=== PATIENT | female | born 1935 | race Caucasian/White ===

== ENCOUNTER 2017-06-05 10:59 | Inpatient (IN) | payer MEDICARE, BC ==
--- NOTE | 2017-06-05 11:56 | EDM.PDOC ---
ED HPI GENERAL MEDICAL PROBLEM - General Chief Complaint: Syncope Stated Complaint: STROKE LIKE SYMPTONS Time Seen by Provider: 06/05/17 11:25 Source of Information: Reports: Patient History Limitations: Reports: No Limitations - History of Present Illness INITIAL COMMENTS - FREE TEXT/NARRATIVE: c/o syncope in [facility] awoke several times during night, up at 5 AM, took her meds including a donut with one, no other bfast, grandson from [place] drove her to [facility], she had pain in her mid back, no CP, sitting in pew, took NTG x 2, stood up for the gospel, felt dizzy and lightheaded, sat back down, was unresponsive when family spoke to her, says she always gets a BROWN after the NTG, however both BROWN and back pain gone now had cardiac stents x 2 at [facility] 12/01, says she had a small NM, 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, no other c/o now, here with grandson, EMS evaluated at scene, then grandson who is 15 yo drove her here in her car pt poor historian, talks at length regarding tangential issues and has to be redirected repeatedly to answer the question asked does drive, appears dehydrated, O x 3 - Related Data Allergies Allergy/AdvReac Type Severity Reaction Status Date / Time No Known Allergies Allergy Verified 06/05/17 12:49 Home Meds: Home Meds Acetaminophen 650 mg PO Q4HR PRN 06/05/17 [History] Anastrozole [Arimidex] 1 mg PO BEDTIME 06/05/17 [History] Ascorbic Acid [C-1000] 2,000 mg PO DAILY 06/05/17 [History] Aspirin [Lo-Dose Aspirin EC] 81 mg PO BEDTIME 06/05/17 [History] Carvedilol [Carvedilol] 12.5 mg PO BID 06/05/17 [History] Clopidogrel Bisulfate [Clopidogrel] 75 mg PO DAILY 06/05/17 [History] Fenofibrate [Fenofibrate] 54 mg PO DAILY 06/05/17 [History] Ferrous Sulfate 325 mg PO DAILY 06/05/17 [History] Furosemide [Lasix] 20 mg PO DAILY PRN 06/05/17 [History] Gluc/Adarsh-Msm#1/C/Mina/Keaton/Bor [Osteo Bi-Flex Caplet] 2 tab PO BID 06/05/17 [ History] Levothyroxine 75 mcg PO DAILY 06/05/17 [History] Lisinopril [Lisinopril] 40 mg PO BEDTIME 06/05/17 [History] Multivitamin with Minerals [Multiple Vitamin] 1 tab PO DAILY 06/05/17 [History] Nitroglycerin 1 tab SL ASDIRECTED PRN 06/05/17 [History] [place]-3/DHA/Epa/Fish Oil [[place]-3 Fish Oil 1,000 MG Sfgl] 2,000 mg PO DAILY [History] Pantoprazole [ProTONIX] 40 mg PO DAILY 06/05/17 [History] Spironolactone [Aldactone] 12.5 mg PO DAILY 06/05/17 [History] atorvaSTATin [Lipitor] 40 mg PO BEDTIME 06/05/17 [History] atorvaSTATin [Lipitor] 40 mg PO BEDTIME 06/05/17 [History] ED ROS GENERAL - Review of Systems Review Of Systems: See Below Constitutional: Reports: No Symptoms HEENT: Reports: No Symptoms Respiratory: Reports: No Symptoms. Denies: Shortness of Breath, Cough Cardiovascular: Reports: No Symptoms. Denies: Chest Pain Endocrine: Reports: No Symptoms GI/Abdominal: Reports: No Symptoms : Reports: No Symptoms Musculoskeletal: Reports: Back Pain Skin: Reports: No Symptoms Neurological: Reports: Syncope Psychiatric: Reports: No Symptoms Hematologic/Lymphatic: Reports: No Symptoms Immunologic: Reports: No Symptoms - Physical Exam Exam: See Below Exam Limited By: No Limitations General Appearance: Alert, WD/WN, No Apparent Distress, Anxious Eye Exam: Bilateral Eye: Normal Inspection, PERRL Ears: Normal External Exam Nose: Normal Inspection, Normal Mucosa, No Blood Throat/Mouth: Normal Inspection, Normal Lips, Normal Teeth, Normal Gums, Normal Oropharynx, Normal Voice, No Airway Compromise Head Exam: Atraumatic, Normocephalic Neck: Normal Inspection, Supple, Non-Tender, Full Range of Motion Respiratory/Chest: No Respiratory Distress, Lungs Clear, Normal Breath Sounds, No Accessory Muscle Use, Chest Non-Tender Cardiovascular: Regular Rate, Rhythm, No Gallop, No JVD, No Rub, Other (2/6 ALYCIA at LSB, no tachy, quiet precordium, no s3/s4) GI/Abdominal: Normal Bowel Sounds, Soft, Non-Tender, No Organomegaly, No Distention, No Mass Neuro Exam (Abbreviated): Alert, Oriented, CN II-XII Intact, Normal Cognition, No Motor/Sensory Deficits Back Exam: Normal Inspection, Full Range of Motion, NT Extremities: Normal Inspection, Normal Range of Motion, Non-Tender, Other ( trace pretib edema b/l, dec'd turgor UE without tenting) Psychiatric: Normal Affect, Normal Mood, Anxious Skin Exam: Warm, Dry, Intact, Normal Color, No Rash Course - Vital Signs Last Recorded V/S: Last Vital Signs Temp 36.6 C 06/05/17 11:00 Pulse 74 06/05/17 11:00 Resp 16 06/05/17 11:00 BP 132/62 06/05/17 11:00 Pulse Ox 95 06/05/17 11:00 - Orders/Labs/Meds Orders: Active Orders 24 hr Category Date Time Status Admission Diagnosis [ADT] Stat ADT 06/05/17 16:15 Ordered EKG Documentation Completion [RC] ASDIRECTED Care 06/05/17 11:51 Active Ang Chest [CT] Stat Exams 06/05/17 13:53 Taken Chest 2V [CR] Stat Exams 06/05/17 11:48 Taken CULTURE URINE [RM] Stat Lab 06/05/17 15:55 Ordered Sodium Chloride 0.9% [Normal Saline] 1,000 ml Med 06/05/17 12:00 Active IV ASDIRECTED Sodium Chloride 0.9% [Normal Saline] 1,000 ml Med 06/05/17 14:00 Active IV ASDIRECTED EKG 12 Lead [EK] Routine Ther 06/05/17 11:51 Ordered Medication Orders Sodium Chloride (Normal Saline) 1,000 mls @ 999 mls/hr IV ASDIRECTED [place] Sodium Chloride (Normal Saline) 1,000 mls @ 999 mls/hr IV ASDIRECTED PAX[place] Labs: Laboratory Tests 06/05/17 06/05/17 06/05/17 Range/Units 12:00 12:00 12:00 WBC 8.6 (4.5-12.0) X10-3/uL RBC 3.94 (3.23-5.20) x10(6)uL Hgb 10.4 L (11.5-15.5) g/dL Hct 31.2 (30.0-51.3) % MCV 79.3 L (80-96) fL MCH 26.3 L (27.7-33.6) pg MCHC 33.2 (32.2-35.4) g/dL RDW 13.4 (11.5-15.5) % Plt Count 213 (125-369) X10(3)uL MPV 8.0 (7.4-10.4) fL Neut % (Auto) 84.9 H (46-82) % Lymph % (Auto) 8.6 L (13-37) % [place] % (Auto) 5.0 (4-12) % Eos % (Auto) 1 (1.0-5.0) % Baso % (Auto) 0 (0-2) % Neut # (Auto) 7.4 (1.6-8.3) # Lymph # (Auto) 0.7 (0.6-5.0) # [place] # (Auto) 0.4 (0.0-1.3) # Eos # (Auto) 0.1 (0.0-0.8) # Baso # (Auto) 0.0 (0.0-0.2) # D-Dimer, Quantitative 724 H (100-400) ng/mL Sodium 138 (135-145) mmol/L Potassium 4.4 (3.5-5.3) mmol/L Chloride 108 (100-110) mmol/L Carbon Dioxide 22 L (23-29) mmol/L BUN 34 H D (8-23) mg/dL Creatinine 1.3 (0.6-1.3) mg/dL Est Cr Clr Drug Dosing TNP Estimated GFR (MDRD) 39 L (>60) BUN/Creatinine Ratio 26.2 H (9-20) Glucose 120 H (80-116) mg/dL Calcium 9.5 (8.6-10.2) mg/dL Magnesium (1.8-2.5) mg/dL Total Bilirubin 0.5 (0.1-1.3) mg/dL AST 22 (5-27) IU/L ALT 13 L D (14-26) IU/L Alkaline Phosphatase 45 L (56-112) IU/L Troponin I (0.02-0.06) NG/ML C-Reactive Protein < 0.5 (0.0-1.0) mg/dL NT-Pro-B Natriuret Pep (5-450) pg/mL Total Protein 7.3 (6.0-8.0) g/dL Albumin 4.2 (3.2-4.6) g/dL Globulin 3.1 g/dL Albumin/Globulin Ratio 1.4 Urine Color (YELLOW) Urine Appearance (CLEAR) Urine pH (5.0-6.5) Ur Specific [place] (1.010-1.025) Urine Protein (NEGATIVE) mg/dL Urine Glucose (UA) (NEGATIVE) mg/dL Urine Ketones (NEGATIVE) mg/dL Urine Occult Blood (NEGATIVE) Urine Nitrite (NEGATIVE) Urine Bilirubin (NEGATIVE) Urine Urobilinogen (NEGATIVE) mg/dL Ur Leukocyte Esterase (NEGATIVE) Urine RBC (0) Urine WBC (0) Ur Squamous Epith Cells (NS,R,O) Urine Bacteria (NS) 06/05/17 06/05/17 06/05/17 Range/Units 12:00 12:00 14:05 WBC (4.5-12.0) X10-3/uL RBC (3.23-5.20) x10(6)uL Hgb (11.5-15.5) g/dL Hct (30.0-51.3) % MCV (80-96) fL MCH (27.7-33.6) pg MCHC (32.2-35.4) g/dL RDW (11.5-15.5) % Plt Count (125-369) X10(3)uL MPV (7.4-10.4) fL Neut % (Auto) (46-82) % Lymph % (Auto) (13-37) % [place] % (Auto) (4-12) % Eos % (Auto) (1.0-5.0) % Baso % (Auto) (0-2) % Neut # (Auto) (1.6-8.3) # Lymph # (Auto) (0.6-5.0) # [place] # (Auto) (0.0-1.3) # Eos # (Auto) (0.0-0.8) # Baso # (Auto) (0.0-0.2) # D-Dimer, Quantitative (100-400) ng/mL Sodium (135-145) mmol/L Potassium (3.5-5.3) mmol/L Chloride (100-110) mmol/L Carbon Dioxide (23-29) mmol/L BUN (8-23) mg/dL Creatinine (0.6-1.3) mg/dL Est Cr Clr Drug Dosing Estimated GFR (MDRD) (>60) BUN/Creatinine Ratio (9-20) Glucose (80-116) mg/dL Calcium (8.6-10.2) mg/dL Magnesium 2.1 (1.8-2.5) mg/dL Total Bilirubin (0.1-1.3) mg/dL AST (5-27) IU/L ALT (14-26) IU/L Alkaline Phosphatase (56-112) IU/L Troponin I < 0.01 L (0.02-0.06) NG/ML C-Reactive Protein (0.0-1.0) mg/dL NT-Pro-B Natriuret Pep 212 (5-450) pg/mL Total Protein (6.0-8.0) g/dL Albumin (3.2-4.6) g/dL Globulin g/dL Albumin/Globulin Ratio Urine Color Yellow (YELLOW) Urine Appearance Clear (CLEAR) Urine pH 5.0 (5.0-6.5) Ur Specific [place] 1.020 (1.010-1.025) Urine Protein Negative (NEGATIVE) mg/dL Urine Glucose (UA) Normal (NEGATIVE) mg/dL Urine Ketones Negative (NEGATIVE) mg/dL Urine Occult Blood Negative (NEGATIVE) Urine Nitrite Positive H (NEGATIVE) Urine Bilirubin Negative (NEGATIVE) Urine Urobilinogen Normal (NEGATIVE) mg/dL Ur Leukocyte Esterase Moderate H (NEGATIVE) Urine RBC 0-5 (0) Urine WBC 0-5 (0) Ur Squamous Epith Cells Moderate H (NS,R,O) Urine Bacteria Many H (NS) Meds: Medications Generic Name Dose Route Start Last Admin Trade Name Freq PRN Reason Stop Dose Admin Sodium Chloride 1,000 mls @ 999 mls/hr 06/05/17 12:00 Normal Saline IV ASDIRECTED PAXTON Sodium Chloride 1,000 mls @ 999 mls/hr 06/05/17 14:00 Normal Saline IV ASDIRECTED PAXTON Discontinued Medications Generic Name Dose Route Start Last Admin Trade Name Freq PRN Reason Stop Dose Admin Iopamidol 75 ml 06/05/17 14:21 06/05/17 14:33 Isovue-370 (76%) IV 06/05/17 14:22 70 ml ONETIME ONE Administration - Re-Assessments/Exams Free Text/Narrative Re-Assessment/Exam: 06/05/17 13:54 d-dimer inc'd, back pain gone, inc'd BUn c/w dehydration, will give 2nd liter NS and do chest CTA, pt and dtr agree 06/05/17 16:26 chest CTA neg, 2nd dtr here, pt admitted 05/09 for 2d in [place] with c/o sob, Brillanta was stopped and Plavix begun, sob now gone, however pt did have back pain with cardiac issues in past altho it is unclear whether back pain was ever cardiac in origin, does have moderate anterior spurring of t-spine on CxR. Chest CTA is neg for PE. However, with syncope and dehydration (pt says "my mouth is always dry") and acute renal insufficiency, pt will need further adjustment of meds. Pt did need higher dose of meds in hospital for inc'd BP, altho will need lower dose now. Departure - Departure Time of Disposition: 16:29 Disposition: Admitted As Inpatient 67 Condition: Good Clinical Impression: Syncope, Dehydration, [id number] renal failure, Widened pulse pressure - Discharge Information Referrals: Trevon Etienne MD [Primary Care Provider] - Forms: ED Department Discharge - My Orders Last 24 Hours: My Active Orders 06/05/17 11:48 Chest 2V [CR] Stat 06/05/17 11:51 EKG Documentation Completion [RC] ASDIRECTED EKG 12 Lead [EK] Routine 06/05/17 12:00 Sodium Chloride 0.9% [Normal Saline] 1,000 ml IV ASDIRECTED 06/05/17 13:53 Ang Chest [CT] Stat 06/05/17 14:00 Sodium Chloride 0.9% [Normal Saline] 1,000 ml IV ASDIRECTED 06/05/17 15:55 CULTURE URINE [RM] Stat 06/05/17 16:15 Admission Diagnosis [ADT] Stat - Assessment/Plan Last 24 Hours: My Active Orders 06/05/17 11:48 Chest 2V [CR] Stat 06/05/17 11:51 EKG Documentation Completion [RC] ASDIRECTED EKG 12 Lead [EK] Routine 06/05/17 12:00 Sodium Chloride 0.9% [Normal Saline] 1,000 ml IV ASDIRECTED 06/05/17 13:53 Ang Chest [CT] Stat 06/05/17 14:00 Sodium Chloride 0.9% [Normal Saline] 1,000 ml IV ASDIRECTED 06/05/17 15:55 CULTURE URINE [RM] Stat 06/05/17 16:15 Admission Diagnosis [ADT] Stat
[2017-06-05] MEDS ORDERED: Sodium Chloride 0.9% 1,000 ML IV SCH ×3 (12:00→18:15)
[2017-06-05] MEDS ORDERED: Iopamidol 755 Mg/ML 75 ML Bottle IV ONE (14:21)
[2017-06-05] MEDS ORDERED: Acetaminophen 325 MG Tab PO PRN (21:48)
[2017-06-05] MEDS ORDERED: Furosemide 20 MG Tab PO PRN (21:48)
[2017-06-05] MEDS ORDERED: Nitroglycerin 0.4 MG Tab.SL SL PRN (21:48)
[2017-06-05] MEDS ORDERED: Aspirin 81 MG Tab.EC PO SCH (22:26)
[2017-06-05] MEDS ORDERED: atorvaSTATin 40 MG Tab PO SCH (22:26)
[2017-06-05] MEDS ORDERED: Anastrozole 1 MG Tab PO SCH (22:27)
[2017-06-05] MEDS: Carvedilol 12.5 MG Tab PO SCH (23:31)
[2017-06-06] MEDS ORDERED: Levothyroxine 75 MCG Tab PO SCH (07:00)
[2017-06-06] MEDS ORDERED: Pantoprazole 40 MG Tab.CR PO SCH (07:30)
--- NOTE | 2017-06-06 08:03 | PCM.HP ---
H&P History of Present Illness - General Date of Service: 06/06/17 Source of Information: Patient, Family History Limitations: Reports: No Limitations - History of Present Illness Initial Comments - Free Text/Narative: 82-year-old female that was brought in to the ER after she fainted in [place]. Patient complained of back pain earlier in the upper back, and since this previously has been associated with the coronary disease, she took nitroglycerin twice. Was standing in [place] she felt warm dizzy and passed out. There was no seizure tongue biting headache chest pain or shortness of breath. Upon admission she was found to have a low blood pressure and she is admitted because of possible dehydration. Initial labs include troponin EKG were unremarkable and a CT of the chest to rule out PE was also normal. The significant history of coronary disease with recent stents and has cardiology appointment for follow-up this week. - Related Data Allergies/Adverse Reactions: Allergies Allergy/AdvReac Type Severity Reaction Status Date / Time ciprofloxacin [From Cipro] AdvReac Itching Verified 06/05/17 19:15 nitrofurantoin AdvReac Nausea and Verified 06/05/17 18:52 [From Macrobid] Vomiting Sulfa (Sulfonamide AdvReac Itching Verified 06/05/17 19:15 Antibiotics) Home Medications: Home Meds Acetaminophen 650 mg PO Q4HR PRN 06/05/17 [History] Anastrozole [Arimidex] 1 mg PO BEDTIME 06/05/17 [History] Ascorbic Acid [C-1000] 2,000 mg PO DAILY 06/05/17 [History] Aspirin [Lo-Dose Aspirin EC] 81 mg PO BEDTIME 06/05/17 [History] Carvedilol [Carvedilol] 12.5 mg PO BID 06/05/17 [History] Clopidogrel Bisulfate [Clopidogrel] 75 mg PO DAILY 06/05/17 [History] Fenofibrate [Fenofibrate] 54 mg PO DAILY 06/05/17 [History] Ferrous Sulfate 325 mg PO DAILY 06/05/17 [History] Furosemide [Lasix] 20 mg PO DAILY PRN 06/05/17 [History] Gluc/Adarsh-Msm#1/C/Mina/Keaton/Bor [Osteo Bi-Flex Caplet] 2 tab PO BID 06/05/17 [ History] Levothyroxine 75 mcg PO DAILY 06/05/17 [History] Lisinopril [Lisinopril] 40 mg PO BEDTIME 06/05/17 [History] Multivitamin with Minerals [Multiple Vitamin] 1 tab PO DAILY 06/05/17 [History] Nitroglycerin 0.4 mg SL Q5M PRN 06/05/17 [History] [place]-3/DHA/Epa/Fish Oil [[place]-3 Fish Oil 1,000 MG Sfgl] 2,000 mg PO DAILY [History] Pantoprazole [ProTONIX] 40 mg PO DAILY 06/05/17 [History] Spironolactone [Aldactone] 12.5 mg PO DAILY 06/05/17 [History] atorvaSTATin [Lipitor] 40 mg PO BEDTIME 06/05/17 [History] Past Medical History HEENT History: Reports: Other (See Below) Cardiovascular History: Reports: CAD, High Cholesterol, Hypertension, HI, Stents , Other (See Below) Other Cardiovascular History: slight damage to wall per echo Respiratory History: Reports: Pneumonia, Recurrent Gastrointestinal History: Reports: Other (See Below) Other Gastrointestinal History: some difficulty swallowing with talk of doing EGD in the future Genitourinary History: Reports: UTI, Recurrent Other Genitourinary History: "chronic bladder infection" 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 (See Below) Other OB/BYN History: hysterectomy for hemorrhage Musculoskeletal History: Reports: Arthritis, Fibromyalgia Other Musculoskeletal History: back, knees, neck Endocrine/Metabolic History: Reports: Hypothyroidism Hematologic History: Reports: Anemia Oncologic (Cancer) History: Reports: Other (See Below) 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 - Past Surgical History HEENT Surgical History: Reports: Other (See Below) Other HEENT Surgeries/Procedures: precancerous spots facially Cardiovascular Surgical History: Reports: Percutaneous Transluminal Angioplasty , Other (See Below) Other Cardiovascular Surgeries/Procedures: 12/01 and 05/03 cardiac stents, Respiratory Surgical History: Reports: None GI Surgical History: Reports: Appendectomy, Colonoscopy Female Surgical History: Reports: Other (See Below) Other Female Surgeries/Procedures: right breast lumpectomy, with 4-5 nodes removed with Musculoskeletal Surgical History: Reports: None, Other (See Below) Other Musculoskeletal Surgeries/Procedures:: disc surgery Social & Family History - Tobacco Use Smoking Status *Q: Never Smoker Second Hand Smoke Exposure: No - Caffeine Use Caffeine Use: Reports: None - Recreational Drug Use Recreational Drug Use: No H&P Review of Systems - Review of Systems: Review Of Systems: ROS reveals no pertinent complaints other than HPI. Exam - Exam Exam: See Below - Vital Signs Vital Signs: Last Vital Signs Temp 97.9 F 06/05/17 23:30 Pulse 93 06/06/17 03:00 Resp 20 06/06/17 03:00 BP 142/64 H 06/06/17 03:00 Pulse Ox 99 06/06/17 03:00 Weight: 70.449 kg - Exam General: Alert, Oriented, 4 HEENT: PERRLA, Hearing Intact, Mucosa Moist & [place], Nares Patent, Normal Nasal Septum, Posterior Pharynx Clear, Conjunctiva Clear, EOMI, EACs Clear, TMs Clear Neck: Supple, Trachea Midline, 2 Lungs: Clear to Auscultation, Normal Respiratory Effort Cardiovascular: Regular Rate, Regular Rhythm GI/Abdominal Exam: Normal Bowel Sounds, Soft, Non-Tender, No Organomegaly, No Distention, No Abnormal Bruit, No Mass, Pelvis Stable (Female) Exam: Normal External Exam, Normal Speculum Exam, Normal Bimanual Exam Rectal (Female) Exam: Normal Exam, Normal Rectal Tone Back Exam: Normal Inspection, Full Range of Motion, Muscle Spasm, Paraspinal Tenderness, Vertebral Tenderness Extremities: Normal Inspection, Normal Range of Motion, Non-Tender, No Pedal Edema, Normal Capillary Refill Skin: Warm, Dry, Intact Neurological: Cranial Nerves Intact, Reflexes Equal Bilateral Neuro Extensive - Mental Status: Alert, Oriented x3, Normal Mood/Affect, Normal Cognition Neuro Extensive - Motor, Sensory, Reflexes: CN II-XII Intact, Normal Gait, Normal Reflexes Psychiatric: Alert, Normal Affect, Normal Mood - Patient Data Result Diagrams: 06/05/17 12:00 06/05/17 12:00 Imaging Impressions Last 24 hrs: neg CT chest EKG INTERPRETATION Rhythm: NSR *Q Meaningful Use (ADM) - VTE *Q VTE Criteria *Q: - Stroke *Q Stroke Criteria *Q: - AMI *Q AMI Criteria *Q: - Problem List (1) Syncope SNOMED Code(s): 593812028 ICD Code: R55 - SYNCOPE AND COLLAPSE Status: Acute Current Visit: Yes Qualifiers: Syncope type: unspecified Qualified Code(s): R55 - Syncope and collapse (2) CAD (coronary artery disease) SNOMED Code(s): 83813301 ICD Code: I25.10 - ATHSCL HEART DISEASE OF [place] CORONARY ARTERY W/O ANG PCTRS Status: Acute Current Visit: Yes (3) Myofascial muscle pain SNOMED Code(s): 235358871 ICD Code: M79.1 - MYALGIA Status: Acute Current Visit: Yes (4) ALISSON (generalized anxiety disorder) SNOMED Code(s): 58721747 ICD Code: F41.1 - GENERALIZED ANXIETY DISORDER Status: Acute Current Visit: Yes (5) HLD (hyperlipidemia) SNOMED Code(s): 74125727 ICD Code: E78.5 - HYPERLIPIDEMIA, UNSPECIFIED Status: Acute Current Visit : Yes Problem List Initiated/Reviewed/Updated: Yes Orders Last 24hrs: Active Orders 24 hr Category Date Time Status EKG Documentation Completion [RC] ASDIRECTED Care 06/06/17 07:45 Active Regular Diet [DIET] Diet 06/05/17 Dinner Active BASIC METABOLIC PANEL,BMP [CHEM] Stat Lab 06/06/17 07:45 Ordered CBC WITH AUTO DIFF [HEME] Stat Lab 06/06/17 07:45 Ordered TROPONIN I [CHEM] Stat Lab 06/06/17 07:45 Ordered Acetaminophen [Tylenol] Med 06/05/17 21:48 Active 650 mg PO Q4H PRN Anastrozole [Arimidex] Med 06/05/17 22:27 Active 1 mg PO BEDTIME Ascorbic Acid [Vitamin C] Med 06/06/17 09:00 Active 2,000 mg PO DAILY Aspirin [Halfprin] Med 06/05/17 22:26 Active 81 mg PO BEDTIME Carvedilol [Coreg] Med 06/05/17 22:00 Active 12.5 mg PO BIDMEALS Clopidogrel [Plavix] Med 06/06/17 09:00 Active 75 mg PO DAILY Fenofibrate [Fenofibrate] Med 06/06/17 09:00 Pending 54 mg PO DAILY Ferrous Sulfate Med 06/06/17 09:00 Active 325 mg PO DAILY Fish Oil/[place]-3 Fatty Acids [Fish Oil] Med 06/06/17 09:00 Active 2 gm PO DAILY Furosemide [Lasix] Med 06/05/17 21:48 Active 20 mg PO DAILY PRN Gluc/Adarsh-Msm#1/C/Mina/Ke[place]/Bor [Osteo Bi-Flex Caplet] Med 06/06/17 09:00 Pending 2 tab PO BID Levothyroxine Med 06/06/17 07:00 Active 75 mcg PO DAILY@0700 Lisinopril [Prinivil] Med 06/05/17 22:27 Active 40 mg PO BEDTIME Multivitamins/Minerals [Vitamins and Minerals] Med 06/06/17 09:00 Active 1 tab PO DAILY Nitroglycerin [Nitrostat] Med 06/05/17 21:48 Active 0.4 mg SL ASDIRECTED PRN Pantoprazole [ProTONIX] Med 06/06/17 07:30 Active 40 mg PO ACBREAKFAST Sodium Chloride 0.9% [Normal Saline] 1,000 ml Med 06/05/17 18:15 Active IV ASDIRECTED Spironolactone [Aldactone] Med 06/06/17 09:00 Active 12.5 mg PO DAILY atorvaSTATin [Lipitor] Med 06/05/17 22:26 Active 40 mg PO BEDTIME Resuscitation Status Routine Resus Stat 06/06/17 00:33 Ordered EKG 12 Lead [EK] Routine Ther 06/06/17 07:45 Ordered Medication Orders Acetaminophen (Tylenol) 650 mg PO Q4H PRN PRN Reason: Pain Anastrozole (Arimidex) 1 mg PO BEDTIME [facility] Last Admin: 06/05/17 23:31 Dose: 1 mg Ascorbic Acid (Vitamin C) 2,000 mg PO DAILY [facility] Aspirin (Halfprin) 81 mg PO BEDTIME [facility] Last Admin: 06/05/17 23:31 Dose: 81 mg Atorvastatin Calcium (Lipitor) 40 mg PO BEDTIME [facility] Last Admin: 06/05/17 23:31 Dose: 40 mg Carvedilol (Coreg) 12.5 mg PO BIDMEALS [facility] Last Admin: 06/05/17 23:31 Dose: 12.5 mg Clopidogrel Bisulfate (Plavix) 75 mg PO DAILY [facility] Ferrous Sulfate (Ferrous Sulfate) 325 mg PO DAILY [facility] Fish Oil (Fish Oil) 2 gm PO DAILY [facility] Furosemide (Lasix) 20 mg PO DAILY PRN PRN Reason: Edema Sodium Chloride (Normal Saline) 1,000 mls @ 999 mls/hr IV ASDIRECTED [facility] Last Admin: 06/05/17 12:40 Dose: 999 mls/hr Sodium Chloride (Normal Saline) 1,000 mls @ 999 mls/hr IV ASDIRECTED [facility] Last Admin: 06/05/17 16:48 Dose: 999 mls/hr Sodium Chloride (Normal Saline) 1,000 mls @ 30 mls/hr IV ASDIRECTED [facility] Last Admin: 06/05/17 18:15 Dose: 30 mls/hr Levothyroxine Sodium (Levothyroxine) 75 mcg PO DAILY@0700 [facility] Last Admin: 06/06/17 06:33 Dose: 75 mcg Lisinopril (Prinivil) 40 mg PO BEDTIME [facility] Last Admin: 06/05/17 23:32 Dose: 40 mg Multivitamins/Minerals (Vitamins And Minerals) 1 tab PO DAILY [facility] Nitroglycerin (Nitrostat) 0.4 mg SL ASDIRECTED PRN PRN Reason: Chest Pain Non-Formulary Medication (Fenofibrate [Fenofibrate]) 54 mg PO DAILY [facility] Non-Formulary Medication (Gluc/Adarsh-Msm#1/C/Mina/Keaton/Bor [Osteo Bi-Flex Caplet] ) 2 tab PO BID [facility] Pantoprazole Sodium (Protonix) 40 mg PO ACBREAKFAST [facility] Last Admin: 06/06/17 06:33 Dose: 40 mg Spironolactone (Aldactone) 12.5 mg PO DAILY [facility] Assessment/Plan Comment:: Admit the patient. Repeat troponin EKG this morning. Overnight there was no arrhythmia noted on telemetry ,,and she feels good this morning ,with no chest pain or shortness breath. She continues to complain of upper back pain and on palpation this vertebral and paraspinal muscle tenderness. If the EKG and troponin are negative I will discharge her for further follow-up with cardiology tomorrow
[2017-06-06] MEDS ORDERED: Spironolactone 25 MG Tab PO SCH ×2 (09:00)
[2017-06-06] MEDS ORDERED: FENOFIBRATE 54 MG PO SCH (09:00)
[2017-06-06] MEDS ORDERED: Ferrous Sulfate 325 MG Tab PO SCH (09:00)
[2017-06-06] MEDS ORDERED: Ascorbic Acid 500 MG Tab PO SCH (09:00)
[2017-06-06] MEDS ORDERED: Fish Oil/Omega-3 Fatty Acids 1 Gm Cap PO SCH ×2 (09:00→12:00)
[2017-06-06] MEDS ORDERED: Clopidogrel 75 MG Tab PO SCH (09:00)
[2017-06-06] MEDS ORDERED: Multivitamins, Therapeutic with Minerals Tab PO SCH (09:00)
[2017-06-06] MEDS: Carvedilol 12.5 MG Tab PO SCH (09:36)
[2017-06-06] MEDS ORDERED: Chondroitin/Glucosamine Cap PO SCH (18:00)
[2017-06-06] MEDS ORDERED: Aspirin 81 MG Tab.EC PO SCH (21:00)
[2017-06-06] MEDS ORDERED: Anastrozole 1 MG Tab PO SCH (21:00)
[2017-06-06] MEDS ORDERED: atorvaSTATin 40 MG Tab PO SCH ×2 (21:00)
--- NOTE | 2017-06-06 21:39 | DISCH ---
DISCHARGE DATE: 06/06/2017 REASON FOR ADMISSION: 1. Vasovagal syncope. 2. Mild dehydration. 3. Coronary artery disease, status post stents x2 in 2017. 4. Hypertension. 5. Hyperlipidemia. 6. Generalized anxiety disorder. 7. Myofascial pain, upper back. DISCHARGE DIAGNOSES: 1. Vasovagal syncope. 2. Mild dehydration. 3. Coronary artery disease, status post stents x2 in 2017. 4. Hypertension. 5. Hyperlipidemia. 6. Generalized anxiety disorder. 7. Myofascial pain, upper back. CONSULTATIONS: None. HISTORY AND HOSPITAL COURSE: An 82-year-old female known to have coronary artery disease, who had upper back pain, which previously has presented as an acute coronary syndrome. She took 2 doses of nitroglycerin, felt dizzy and fainted at [facility], was brought in for evaluation. She was found to be mildly dehydrated, but otherwise alert and with widened pulse pressure. She was given IV fluids. EKG, troponin were negative. She was admitted for telemetry and monitoring. She did well overnight. A CT of the chest done in the ER was negative for PE. I discharged her home today on a regular home medications for a followup appointment with Cardiology tomorrow. She will go home on the same dose of her medications. Please note that I spent more than 35 minutes in the discharge of the patient. /[id number] TANNER/FRANCISCO
[2017-06-07] MEDS ORDERED: Levothyroxine 75 MCG Tab PO SCH (06:00)
== END 2017-06-06 12:05 | disposition home or self-care (01) | DRG 312 ==
LOC: FB.ED 10:59 → FB.MS 16:36
PROVIDERS: ADMIT Family Medicine; ATTEND Family Medicine
DX: R55 Syncope and collapse (principal); E86.0 Dehydration; M79.1 Myalgia; F41.1 Generalized anxiety disorder; E78.5 Hyperlipidemia, unspecified; N17.9 Acute kidney failure, unspecified; I25.10 Atherosclerotic heart disease of native coronary artery without angina pectoris; I11.0 Hypertensive heart disease with heart failure; I50.9 Heart failure, unspecified; Z95.5 Presence of coronary angioplasty implant and graft; I25.2 Old myocardial infarction; M19.90 Unspecified osteoarthritis, unspecified site; E03.9 Hypothyroidism, unspecified; D64.9 Anemia, unspecified; Z79.82 Long term (current) use of aspirin; Z79.899 Other long term (current) drug therapy; Z88.1 Allergy status to other antibiotic agents; Z88.2 Allergy status to sulfonamides
CPT/HCPCS: 36415; 71020; 71275; 80053; 81001; 83735; 83880; 84484; 85025; 85379; 86140; 87086; 87088; 93005; 96360; 99285; J7040; Q9967; 80048; 87186; A9270; A9270-GY

== ENCOUNTER 2018-01-14 15:42 | Emergency (ER) | payer MEDICARE, BC ==
--- NOTE | 2018-01-14 16:13 | EDM.PDOC ---
ED HPI GENERAL MEDICAL PROBLEM - General Stated Complaint: DIZZY, CHEST PAIN AND LOSING VOICE Time Seen by Provider: 01/14/18 15:42 Source of Information: Reports: Patient History Limitations: Reports: Other (poor historian) - History of Present Illness INITIAL COMMENTS - FREE TEXT/NARRATIVE: 83 y.o.w.f came with her grandson to the ed due to dizziness, weakness and difficulty ambulating with unsteady gate. No C/P No N/V/D no SOB. Pt is a poor historian. The symptoms are progressing in the past few weeks. Pt has poor water intake. She live with family. BP 114/76 pulse 52 temp 36.8 RR 18 Pulse ox 99% Onset Date: 01/04/18 Onset Time: 08:00 Duration: Intermittent Location: Reports: Generalized Quality: Reports: Same as Previous Episode (Dizzy) Severity: Mild Improves with: Reports: Rest Worsens with: Reports: Movement Context: Reports: Other (Dizzy) Associated Symptoms: Reports: Weakness - Related Data Allergies Allergy/AdvReac Type Severity Reaction Status Date / Time nitrofurantoin AdvReac Nausea and Verified 01/14/18 18:26 [From Macrobid] Vomiting Sulfa (Sulfonamide AdvReac Itching Verified 01/14/18 18:26 Antibiotics) Home Meds: Home Meds Acetaminophen 650 mg PO Q4HR PRN 06/05/17 [History] Anastrozole [Arimidex] 1 mg PO BEDTIME 06/05/17 [History] Ascorbic Acid [C-1000] 2,000 mg PO DAILY 06/05/17 [History] Aspirin [Lo-Dose Aspirin EC] 81 mg PO BEDTIME 06/05/17 [History] Carvedilol 12.5 mg PO BID 06/05/17 [History] Clopidogrel Bisulfate [Clopidogrel] 75 mg PO DAILY 06/05/17 [History] Fenofibrate 54 mg PO DAILY 06/05/17 [History] Ferrous Sulfate 325 mg PO BID 06/05/17 [History] Furosemide [Lasix] 20 mg PO DAILY PRN 06/05/17 [History] Gluc/Adarsh-Msm#1/C/Mina/Keaton/Bor [Osteo Bi-Flex Caplet] 2 tab PO DAILY 06/05/17 [ History] Levothyroxine 75 mcg PO DAILY 06/05/17 [History] Multivitamin with Minerals [Multiple Vitamin] 1 tab PO DAILY 06/05/17 [History] Nitroglycerin 0.4 mg SL Q5M PRN 06/05/17 [History] Silex-3/DHA/Epa/Fish Oil [Silex-3 Fish Oil 1,000 MG Sfgl] 1,000 mg PO DAILY [History] Pantoprazole [ProTONIX] 40 mg PO DAILY 06/05/17 [History] Spironolactone [Aldactone] 25 mg PO DAILY 06/05/17 [History] atorvaSTATin [Lipitor] 40 mg PO BEDTIME 06/05/17 [History] Ciprofloxacin HCl [Cipro] 500 mg PO BID #20 tablet 01/14/18 [Rx] Cyclobenzaprine HCl 5 mg PO BID PRN 01/14/18 [History] Meclizine [Antivert] 25 mg PO Q6H PRN #10 tab 01/14/18 [Rx] Sennosides/Docusate Sodium [Senna-Docusate Sodium] 1 tab PO BID PRN 01/14/18 [ History] Past Medical History HEENT History: Reports: Other (See Below) Cardiovascular History: Reports: CAD, High Cholesterol, Hypertension, [place], Stents , Other (See Below) Other Cardiovascular History: slight damage to wall per echo Respiratory History: Reports: Pneumonia, Recurrent Gastrointestinal History: Reports: Other (See Below) Other Gastrointestinal History: some difficulty swallowing with talk of doing EGD in the future Genitourinary History: Reports: UTI, Recurrent Other Genitourinary History: "chronic bladder infection" NUTRITIONAL SERVICES DIRECTOR History: Reports: Other (See Below) Other NUTRITIONAL SERVICES DIRECTOR History: hysterectomy for hemorrhage Musculoskeletal History: Reports: Arthritis, Fibromyalgia Other Musculoskeletal History: back, knees, neck Endocrine/Metabolic History: Reports: Hypothyroidism Hematologic History: Reports: Anemia Oncologic (Cancer) History: Reports: Other (See Below) 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 - Past Surgical History HEENT Surgical History: Reports: Other (See Below) Other HEENT Surgeries/Procedures: precancerous spots facially Cardiovascular Surgical History: Reports: Percutaneous Transluminal Angioplasty , Other (See Below) Other Cardiovascular Surgeries/Procedures: 12/01 and 05/03 cardiac stents, Respiratory Surgical History: Reports: None GI Surgical History: Reports: Appendectomy, Colonoscopy Female Surgical History: Reports: Other (See Below) Other Female Surgeries/Procedures: right breast lumpectomy, with 4-5 nodes removed with Musculoskeletal Surgical History: Reports: None, Other (See Below) Other Musculoskeletal Surgeries/Procedures:: disc surgery Social & Family History - Caffeine Use Caffeine Use: Reports: None ED ROS GENERAL - Review of Systems Review Of Systems: Unable To Obtain Constitutional: Reports: ROS unobtainable ED EXAM, GENERAL - Physical Exam Exam: See Below Exam Limited By: Altered Mental Status General Appearance: Alert, WD/WN, Mild Distress Eye Exam: Bilateral Eye: Nystagmus Ears: Normal External Exam Ear Exam: Bilateral Ear: Auricle Normal Nose: Normal Inspection Throat/Mouth: Normal Lips, Normal Voice, No Airway Compromise, Other (Dry mucosal membrane) Head: Atraumatic, Normocephalic Neck: Normal Inspection, Supple, Non-Tender, Full Range of Motion Respiratory/Chest: No Respiratory Distress, Lungs Clear, Normal Breath Sounds, Chest Non-Tender Cardiovascular: Normal Peripheral Pulses, Regular Rate, Rhythm, No Edema, No Gallop, No JVD, No Murmur, No Rub Peripheral Pulses: 1+: Brachial (L) GI/Abdominal: Normal Bowel Sounds, Soft, Non-Tender, No Organomegaly (Female) Exam: Deferred Rectal (Female) Exam: Deferred Back Exam: Normal Inspection, Full Range of Motion Extremities: Normal Inspection, Normal Range of Motion, Non-Tender, No Pedal Edema Neurological: Alert, Oriented, CN II-XII Intact, Normal Cognition, Normal Gait ( feeling week) Psychiatric: Normal Affect, Normal Mood Skin Exam: Warm, Dry, Intact, Normal Color, No Rash Lymphatic: No Adenopathy Course - Vital Signs Text/Narrative:: 83 y.o.w.f came with her grandson to the ed due to dizziness, weakness and difficulty ambulating with unsteady gate. No C/P No N/V/D no SOB. Pt is a poor historian. The symptoms are progressing in the past few weeks. Pt has poor water intake. She live with family. BP 114/76 pulse 52 temp 36.8 RR 18 Pulse ox 99% 83 y.o.w.f with vertigo, dehydration and gen weakness Imaging: Not indicated Labs: HGB 9.6 HCT 30.1 BUN 34 Inr 1.01 BUN 31 Cr. 1.3 BUN/Cr ratio elevated, K 4.0 Na 139 GFR 39 UA: + leucytesterase pos, no UBC UCx neg (01/15/2018) Impression: Dizziness, Dehydration, vertigo Tx: Antivert, NS Reexam: Improved, ambulates, refused admission Plan: D/C with instructions Last Recorded V/S: Last Vital Signs Temp 36.6 C 01/14/18 15:42 Pulse 52 L 01/14/18 19:00 Resp 18 01/14/18 19:00 BP 120/82 01/14/18 19:00 Pulse Ox 99 01/14/18 19:00 Orthostatic Blood Pressure [ 152/67 Standing] Orthostatic Blood Pressure [ 120/102 Sitting] Orthostatic Blood Pressure [ 118/41 Supine] - Orders/Labs/Meds Orders: Active Orders 24 hr Category Date Time Status CULTURE URINE [RM] Stat Lab 01/14/18 17:56 Ordered TROPONIN I [CHEM] Stat Lab 01/15/18 16:24 Ordered UA W/MICROSCOPIC [URIN] Stat Lab 01/14/18 17:56 Ordered Saline Lock Insert [OM.PC] Routine Oth 01/14/18 17:16 Ordered Labs: Laboratory Tests 01/14/18 01/14/18 01/14/18 Range/Units 16:50 16:50 16:50 WBC 4.8 (4.5-12.0) X10-3/uL RBC 3.65 (3.23-5.20) x10(6)uL Hgb 9.6 L (11.5-15.5) g/dL Hct 30.1 (30.0-51.3) % MCV 82.5 (80-96) fL MCH 26.4 L (27.7-33.6) pg MCHC 32.0 L (32.2-35.4) g/dL RDW 13.3 (11.5-15.5) % Plt Count 246 (125-369) X10(3)uL MPV 7.3 L (7.4-10.4) fL Neut % (Auto) 65.5 (46-82) % Lymph % (Auto) 22.0 (13-37) % Lares % (Auto) 9.5 (4-12) % Eos % (Auto) 3 (1.0-5.0) % Baso % (Auto) 1 (0-2) % Neut # (Auto) 3.2 (1.6-8.3) # Lymph # (Auto) 1.0 (0.6-5.0) # Lares # (Auto) 0.5 (0.0-1.3) # Eos # (Auto) 0.1 (0.0-0.8) # Baso # (Auto) 0.0 (0.0-0.2) # PT 10.2 (8.7-11.1) INR 1.05 (0.89-1.13) Sodium 139 (135-145) mmol/L Potassium 4.0 (3.5-5.3) mmol/L Chloride 106 (100-110) mmol/L Carbon Dioxide 24 (21-32) mmol/L BUN 31 H (7-18) mg/dL Creatinine 1.3 H (0.55-1.02) mg/dL Est Cr Clr Drug Dosing TNP Estimated GFR (MDRD) 39 L (>60) BUN/Creatinine Ratio 23.8 H (9-20) Glucose 91 (80-116) mg/dL Calcium 9.3 (8.6-10.2) mg/dL NT-Pro-B Natriuret Pep (<=450) pg/mL Urine Color (YELLOW) Urine Appearance (CLEAR) Urine pH (5.0-6.5) Ur Specific [place] (1.010-1.025) Urine Protein (NEGATIVE) mg/dL Urine Glucose (UA) (NEGATIVE) mg/dL Urine Ketones (NEGATIVE) mg/dL Urine Occult Blood (NEGATIVE) Urine Nitrite (NEGATIVE) Urine Bilirubin (NEGATIVE) Urine Urobilinogen (NEGATIVE) mg/dL Ur Leukocyte Esterase (NEGATIVE) Urine RBC (0) Urine WBC (0) Ur Squamous Epith Cells (NS,R,O) Urine Bacteria (NS) 01/14/18 01/14/18 Range/Units 16:50 17:56 WBC (4.5-12.0) X10-3/uL RBC (3.23-5.20) x10(6)uL Hgb (11.5-15.5) g/dL Hct (30.0-51.3) % MCV (80-96) fL MCH (27.7-33.6) pg MCHC (32.2-35.4) g/dL RDW (11.5-15.5) % Plt Count (125-369) X10(3)uL MPV (7.4-10.4) fL Neut % (Auto) (46-82) % Lymph % (Auto) (13-37) % Lares % (Auto) (4-12) % Eos % (Auto) (1.0-5.0) % Baso % (Auto) (0-2) % Neut # (Auto) (1.6-8.3) # Lymph # (Auto) (0.6-5.0) # Lares # (Auto) (0.0-1.3) # Eos # (Auto) (0.0-0.8) # Baso # (Auto) (0.0-0.2) # PT (8.7-11.1) INR (0.89-1.13) Sodium (135-145) mmol/L Potassium (3.5-5.3) mmol/L Chloride (100-110) mmol/L Carbon Dioxide (21-32) mmol/L BUN (7-18) mg/dL Creatinine (0.55-1.02) mg/dL Est Cr Clr Drug Dosing Estimated GFR (MDRD) (>60) BUN/Creatinine Ratio (9-20) Glucose (80-116) mg/dL Calcium (8.6-10.2) mg/dL NT-Pro-B Natriuret Pep 158 (<=450) pg/mL Urine Color Yellow (YELLOW) Urine Appearance Clear (CLEAR) Urine pH 5.0 (5.0-6.5) Ur Specific [place] 1.015 (1.010-1.025) Urine Protein Negative (NEGATIVE) mg/dL Urine Glucose (UA) Normal (NEGATIVE) mg/dL Urine Ketones Negative (NEGATIVE) mg/dL Urine Occult Blood Negative (NEGATIVE) Urine Nitrite Negative (NEGATIVE) Urine Bilirubin Negative (NEGATIVE) Urine Urobilinogen Normal (NEGATIVE) mg/dL Ur Leukocyte Esterase Large H (NEGATIVE) Urine RBC 0-5 (0) Urine WBC 0-5 (0) Ur Squamous Epith Cells Occasional (NS,R,O) Urine Bacteria Rare H (NS) Meds: Medications Discontinued Medications Generic Name Dose Route Start Last Admin Trade Name Freq PRN Reason Stop Dose Admin Sodium Chloride 1,000 mls @ 999 mls/hr 01/14/18 17:20 01/14/18 17:20 Normal Saline IV 01/14/18 18:20 999 mls/hr .BOLUS ONE Administration Meclizine HCl 12.5 mg 01/14/18 16:59 01/14/18 17:19 Antivert PO 01/14/18 17:00 12.5 mg ONETIME ONE Administration Sodium Chloride 10 ml 01/14/18 17:16 01/14/18 17:23 Saline Flush FLUSH 10 ml ASDIRECTED PRN Administration Keep Vein Open Departure - Departure Time of Disposition: 18:34 Disposition: Home, Self-Care 01 Condition: Good Clinical Impression: Vertigo UTI (urinary tract infection) Qualifiers: Indwelling urinary catheter type: unspecified Encounter type: initial encounter - Discharge Information Prescriptions: Ciprofloxacin HCl [Cipro] 500 mg PO BID #20 tablet Meclizine [Antivert] 25 mg PO Q6H PRN #10 tab PRN Reason: Dizziness Instructions: Meclizine tablets or capsules, Vertigo, [id number], Dehydration , Adult, [id number], Ciprofloxacin tablets Referrals: Trevon Etienne MD [Primary Care Provider] - Forms: ED Department Discharge Additional Instructions: Please increase water intak, take cipro and antivert as recommend. Please f/u with your PMD in next 3 days. Please come back if your symptoms get worse acutely - My Orders Last 24 Hours: My Active Orders 01/14/18 17:16 Saline Lock Insert [OM.PC] Routine 01/14/18 17:56 CULTURE URINE [RM] Stat UA W/MICROSCOPIC [URIN] Stat 01/15/18 16:24 TROPONIN I [CHEM] Stat - Assessment/Plan Last 24 Hours: My Active Orders 01/14/18 17:16 Saline Lock Insert [OM.PC] Routine 01/14/18 17:56 CULTURE URINE [RM] Stat UA W/MICROSCOPIC [URIN] Stat 01/15/18 16:24 TROPONIN I [CHEM] Stat
[2018-01-14] MEDS ORDERED: Sodium Chloride 0.9% 500 ML IV ONE (16:34)
[2018-01-14] MEDS ORDERED: Meclizine 12.5 MG Tab PO ONE (16:34)
[2018-01-14] MEDS ORDERED: Meclizine 25 MG Tab PO ONE (16:59)
[2018-01-14] MEDS ORDERED: Sodium Chloride 0.9% 10 ML Syringe FLUSH PRN (17:16)
[2018-01-14] MEDS ORDERED: Sodium Chloride 0.9% 1,000 ML IV ONE (17:20)
== END 2018-01-14 19:00 | disposition home or self-care (01) ==
LOC: FB.ED 15:42
DX: N39.0 Urinary tract infection, site not specified (principal); R42 Dizziness and giddiness; I10 Essential (primary) hypertension; I25.2 Old myocardial infarction; Z88.2 Allergy status to sulfonamides; Z88.8 Allergy status to other drugs, medicaments and biological substances; Z79.899 Other long term (current) drug therapy
CPT/HCPCS: 36415; 80048; 81001; 83880; 84484; 85025; 85610; 87086; 96360; 99284; A9270-GY; J7030; J7050

== ENCOUNTER 2019-01-24 11:36 | Observation (INO) | payer MEDICARE, BC ==
--- NOTE | 2019-01-24 12:27 | EDM.PDOC ---
ED HPI GENERAL MEDICAL PROBLEM - General Chief Complaint: Chest Pain Stated Complaint: CHEST PAIN Time Seen by Provider: 01/24/19 11:45 Source of Information: Reports: Patient, Family, Old Records History Limitations: Reports: No Limitations - History of Present Illness INITIAL COMMENTS - FREE TEXT/NARRATIVE: Patient is a very pleasant 84-year-old female presents today with concern for pain in her chest, radiating to her back and up to her neck somewhere between 9: 30 and 10:00 this morning. She did not try taking any of her nitroglycerin because she did that once before and ended up passing out. She has a history of coronary artery disease and stents placed 2, most recent stent was placed in April 2017. She states she has been extremely tired this morning, however did not note any other symptoms with her pain. Her pain resolved by the time she arrived at the emergency room, and it is uncertain how long it lasted but possibly up to a half an hour. She denies any nausea, sweating, syncopal or feeling lightheaded, heart beating fast or skipping beats. She notes intermittent swelling in her legs for which she takes 20 mg of Lasix when necessary. Last time she took it was 2 weeks ago, but has also noticed she has slightly more swelling in her right leg versus her left. She denies any cough, chest pain, shortness of breath - Related Data Allergies Allergy/AdvReac Type Severity Reaction Status Date / Time nitrofurantoin AdvReac Nausea and Verified 01/14/18 18:26 [From Macrobid] Vomiting Sulfa (Sulfonamide AdvReac Itching Verified 01/14/18 18:26 Antibiotics) Home Meds: Home Meds RX: Acetaminophen 650 mg PO Q4H PRN 06/05/17 [History] RX: Anastrozole [Arimidex] 1 mg PO BEDTIME 06/05/17 [History] RX: Ascorbic Acid [C-1000] 2,000 mg PO DAILY 06/05/17 [History] RX: Aspirin [Lo-Dose Aspirin EC] 81 mg PO BEDTIME 06/05/17 [History] RX: Carvedilol 12.5 mg PO BID 06/05/17 [History] RX: Clopidogrel Bisulfate [Clopidogrel] 75 mg PO DAILY 06/05/17 [History] RX: Ferrous Sulfate 325 mg PO DAILY 06/05/17 [History] RX: Furosemide [Lasix] 20 mg PO DAILY PRN 06/05/17 [History] RX: Gluc/Adarsh-Msm#1/C/Mina/Keaton/Bor [Osteo Bi-Flex Caplet] 2 tab PO BEDTIME 06/05 [History] RX: Levothyroxine 75 mcg PO DAILY@0600 06/05/17 [History] RX: Multivitamin with Minerals [Multiple Vitamin] 1 tab PO BEDTIME 06/05/17 [ History] RX: Nitroglycerin 0.4 mg SL Q5M PRN 06/05/17 [History] RX: [place]-3/DHA/Epa/Fish Oil [[place]-3 Fish Oil 1,000 MG Sfgl] 1,000 mg PO DAILY 06/05/17 [History] RX: Pantoprazole [ProTONIX] 40 mg PO DAILY@0600 06/05/17 [History] Sennosides/Docusate Sodium [Senna-Docusate Sodium] 1 tab PO BID PRN 01/14/18 [ History] Calcium Carbonate/Vitamin D3 [Calcium 600 + Vit D 400 Softgl] 1 tab PO DAILY 05/05 [History] Cholecalciferol (Vitamin D3) [Vitamin D3] 1,000 unit PO BID 01/24/19 [History] Fenofibrate 54 mg PO BEDTIME 01/24/19 [History] RX: Cranberry 500 mg PO BID 01/24/19 [History] RX: Cyanocobalamin (Vitamin B12) [Vitamin B12] 500 mg PO DAILY 01/24/19 [History ] RX: atorvaSTATin [Lipitor] 20 mg PO BEDTIME 01/24/19 [History] Past Medical History HEENT History: Reports: Other (See Below) Cardiovascular History: Reports: CAD, High Cholesterol, Hypertension, MD, Stents , Other (See Below) Other Cardiovascular History: slight damage to wall per echo Respiratory History: Reports: Pneumonia, Recurrent Gastrointestinal History: Reports: Other (See Below) Other Gastrointestinal History: some difficulty swallowing with talk of doing EGD in the future Genitourinary History: Reports: UTI, Recurrent Other Genitourinary History: "chronic bladder infection" DISH TECHNICIAN History: Reports: Other (See Below) Other DISH TECHNICIAN History: hysterectomy for hemorrhage Musculoskeletal History: Reports: Arthritis, Fibromyalgia Other Musculoskeletal History: back, knees, neck Endocrine/Metabolic History: Reports: Hypothyroidism Hematologic History: Reports: Anemia Oncologic (Cancer) History: Reports: Other (See Below) 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 - Past Surgical History HEENT Surgical History: Reports: Other (See Below) Other HEENT Surgeries/Procedures: precancerous spots facially Cardiovascular Surgical History: Reports: Percutaneous Transluminal Angioplasty , Other (See Below) Other Cardiovascular Surgeries/Procedures: 12/01 and 05/03 cardiac stents, Respiratory Surgical History: Reports: None GI Surgical History: Reports: Appendectomy, Colonoscopy Female Surgical History: Reports: Other (See Below) Other Female Surgeries/Procedures: right breast lumpectomy, with 4-5 nodes removed with Musculoskeletal Surgical History: Reports: None, Other (See Below) Other Musculoskeletal Surgeries/Procedures:: disc surgery Social & Family History - Family History Family Medical History: Noncontributory - Caffeine Use Caffeine Use: Reports: None - Alcohol Use Alcohol Use History: No - Living Situation & Occupation Living situation: Reports: Occupation: Retired Social History Comment: Daughter's is getting out of snf todaystressed ED ROS GENERAL - Review of Systems Review Of Systems: See Below Constitutional: Reports: Malaise, Weakness, Fatigue, Night Sweats. Denies: Fever, Chills, Diaphoresis HEENT: Reports: Eye Pain (right side, ?got lotion in it ). Denies: Rhinitis, Throat Pain Respiratory: Denies: Shortness of Breath, Wheezing, Cough Cardiovascular: Reports: Edema. Denies: Chest Pain, Dyspnea on Exertion, Lightheadedness, Palpitations Endocrine: Reports: Fatigue GI/Abdominal: Denies: Abdominal Pain, Diarrhea, Nausea, Vomiting : Reports: No Symptoms Musculoskeletal: Reports: No Symptoms Skin: Reports: No Symptoms Neurological: Denies: Headache, Numbness, Tingling, Weakness Hematologic/Lymphatic: Reports: Anemia, Easy Bleeding, Easy Bruising Immunologic: Reports: No Symptoms ED EXAM, GENERAL - Physical Exam Exam: See Below Free Text/Narrative:: General: Alert, very pleasant no acute distress. Head is atraumatic. Eyes pupils are equal and reactive, conjunctivae are clear and there is no tearing or other abnormalities noted. Throat is without erythema, mucous members are moist there is no tonsillar enlargement or exudates. Neck is supple and there is no cervical adenopathy. Lungs are clear throughout with no wheezes or crackles good air movement in all rene. Heart is regular rate and rhythm and I do not hear any murmur. Peripheral pulses +2 in both the upper and lower extremities and there is trace lower extremity edema on the left, with increased lower extremity edema on the right and calf swelling. No calf tenderness. Abdomen is positive bowel sounds, soft nondistended nontender with no rebound or guarding. Neuro: Equal strength right side, facial muscles symmetric, cognition is normal. Skin has a few scattered bruises, no wounds Course - Vital Signs Text/Narrative:: Patient with significant history of coronary artery disease and last/stents placed in April 2017. Episode this morning very concerning for possible acute MD. No changes on EKG. Patient does not have any other symptoms and her symptoms resolved prior to arrival. Right Swollen relative to left, will get ultrasound although I think DVT is unlikely when she is on both Plavix and aspirin and bleed easily. Labs pending. Given full dose aspirin upon arrival but is not having any pain so no nitroglycerin. She did not take any nitroglycerin at home due to a previous episode of LOC when she had taken it at [facility] once. Last Recorded V/S: Last Vital Signs Temp 36.6 C 01/24/19 18:46 Pulse 94 01/24/19 21:49 Resp 18 01/24/19 18:46 BP 135/74 01/24/19 21:49 Pulse Ox 98 01/24/19 18:46 - Orders/Labs/Meds Orders: Active Orders 24 hr Category Date Time Status VL Duplex Lwr Ext Veins Ltd Rt [US] Stat Exams 01/24/19 12:19 Taken EKG 12 Lead [EK] Routine Ther 01/24/19 11:54 Ordered Medication Orders Acetaminophen (Tylenol) 650 mg PO Q4H PRN PRN Reason: Pain Anastrozole (Arimidex) 1 mg PO BEDTIME [facility] Last Admin: 01/24/19 21:49 Dose: 1 mg Aspirin (Halfprin) 81 mg PO BEDTIME [facility] Last Admin: 01/24/19 21:45 Dose: 81 mg Atorvastatin Calcium (Lipitor) 20 mg PO BEDTIME [facility] Last Admin: 01/24/19 21:48 Dose: 20 mg Carvedilol (Coreg) 12.5 mg PO BIDMEALS [facility] Last Admin: 01/24/19 21:49 Dose: 12.5 mg Clopidogrel Bisulfate (Plavix) 75 mg PO DAILY [facility] Cranberry (Cranberry) 500 mg PO BID [facility] Last Admin: 01/24/19 21:48 Dose: 500 mg Cyanocobalamin (Vitamin B12) 500,000 mcg PO DAILY [facility] Enoxaparin Sodium (Lovenox) 30 mg SUBCUT Q24H [facility] Last Admin: 01/24/19 19:46 Dose: 30 mg Ferrous Sulfate (Ferrous Sulfate) 325 mg PO DAILY [facility] Levothyroxine Sodium (Levothyroxine) 75 mcg PO DAILY@0600 [facility] Nitroglycerin (Nitrostat) 0.4 mg SL Q5M PRN PRN Reason: Chest Pain Non-Formulary Medication (Ascorbic Acid [C-1000]) 2,000 mg PO DAILY [facility] Non-Formulary Medication (Calcium Carbonate/Vitamin D3 [Calcium 600 + Vit D 400 Softgl]) 1 tab PO DAILY [facility] Cholecalciferol ( Vitamin D3) 1,000 Unit Softgel Own Med 0 unit PO BID [facility] Last Admin: 01/24/19 21:46 Dose: 1,000 unit Fenofibrate 54 Mg (Tab Own Med) 0 mg PO BEDTIME [facility] Last Admin: 01/24/19 21:49 Dose: 54 mg Osteo Bi-Flex Tabs * (*Own Med) 2 tab PO BEDTIME [facility] Last Admin: 01/24/19 21:45 Dose: 2 tab Complete Multivitamin With Minerals Tabs Own Med 1 tab PO BEDTIME [facility] Last Admin: 01/24/19 21:50 Dose: 1 tab Non-Formulary Medication ([place]-3/Dha/Epa/Fish Oil [[place]-3 Fish Oil 1,000 Mg Sfgl]) 1,000 mg PO DAILY [facility] Pantoprazole Sodium (Protonix) 40 mg PO DAILY@0600 [facility] Senna/Docusate Sodium (Senna Plus) 1 tab PO BID PRN PRN Reason: Constipation Sodium Chloride (Saline Flush) 10 ml FLUSH ASDIRECTED PRN PRN Reason: Keep Vein Open Labs: Laboratory Tests 01/24/19 01/24/19 01/24/19 Range/Units 11:55 11:55 11:55 WBC 7.5 (4.5-12.0) X10-3/uL RBC 3.66 (3.23-5.20) x10(6)uL Hgb 10.0 L (11.5-15.5) g/dL Hct 30.3 (30.0-51.3) % MCV 82.7 (80-96) fL MCH 27.3 L (27.7-33.6) pg MCHC 33.0 (32.2-35.4) g/dL RDW 12.8 (11.5-15.5) % Plt Count 189 (125-369) X10(3)uL MPV 7.4 (7.4-10.4) fL Neut % (Auto) 77.6 (46-82) % Lymph % (Auto) 11.9 L (13-37) % [place] % (Auto) 8.7 (4-12) % Eos % (Auto) 2 (1.0-5.0) % Baso % (Auto) 0 (0-2) % Neut # (Auto) 5.8 (1.6-8.3) # Lymph # (Auto) 0.9 (0.6-5.0) # [place] # (Auto) 0.7 (0.0-1.3) # Eos # (Auto) 0.1 (0.0-0.8) # Baso # (Auto) 0.0 (0.0-0.2) # Sodium 141 (135-145) mmol/L Potassium 4.4 (3.5-5.3) mmol/L Chloride 106 (100-110) mmol/L Carbon Dioxide 25 (21-32) mmol/L BUN 32 H (7-18) mg/dL Creatinine 1.3 H (0.55-1.02) mg/dL Est Cr Clr Drug Dosing TNP Estimated GFR (MDRD) 39 L (>60) BUN/Creatinine Ratio 24.6 H (9-20) Glucose 102 (80-116) mg/dL Calcium 9.3 (8.6-10.2) mg/dL Magnesium 1.8 (1.8-2.5) mg/dL Troponin I < 0.017 L (<0.017-0.056) ng/mL Meds: Medications Generic Name Dose Route Start Last Admin Trade Name Freq PRN Reason Stop Dose Admin Acetaminophen 650 mg 01/24/19 17:16 Tylenol PO Q4H PRN Pain Anastrozole 1 mg 01/24/19 21:00 01/24/19 21:49 Arimidex PO 1 mg BEDTIME [facility] Administration Aspirin 81 mg 01/24/19 21:00 01/24/19 21:45 Halfprin PO 81 mg BEDTIME [facility] Administration Atorvastatin Calcium 20 mg 01/24/19 21:00 01/24/19 21:48 Lipitor PO 20 mg BEDTIME [facility] Administration Carvedilol 12.5 mg 01/24/19 21:00 01/24/19 21:49 Coreg PO 12.5 mg BIDMEALS [facility] Administration Clopidogrel Bisulfate 75 mg 01/25/19 09:00 Plavix PO DAILY [facility] Cranberry 500 mg 01/24/19 21:00 01/24/19 21:48 Cranberry PO 500 mg BID [facility] Administration Cyanocobalamin 500,000 mcg 01/25/19 09:00 Vitamin B12 PO DAILY [facility] Enoxaparin Sodium 30 mg 01/24/19 18:00 01/24/19 19:46 Lovenox SUBCUT 30 mg Q24H [facility] Administration Ferrous Sulfate 325 mg 01/25/19 09:00 Ferrous Sulfate PO DAILY [facility] Levothyroxine Sodium 75 mcg 01/25/19 06:00 Levothyroxine PO DAILY@0600 [facility] Nitroglycerin 0.4 mg 01/24/19 17:16 Nitrostat SL Q5M PRN Chest Pain Non-Formulary Medication 2,000 mg 01/25/19 09:00 Ascorbic Acid [C-1000] PO DAILY [facility] Non-Formulary Medication 1 tab 01/25/19 09:00 Calcium Carbonate/Vitamin D3 [Calcium 600 + Vit D 400 Softgl] PO DAILY [facility] Cholecalciferol ( 0 unit 01/24/19 21:00 01/24/19 21:46 Vitamin D3) 1,000 PO 1,000 unit Unit Softgel Own BID [facility] Administration Med Fenofibrate 54 Mg 0 mg 01/24/19 21:00 01/24/19 21:49 Tab Own Med PO 54 mg BEDTIME [facility] Administration Osteo Bi-Flex Tabs * 2 tab 01/24/19 21:00 01/24/19 21:45 *Own Med PO 2 tab BEDTIME [facility] Administration Complete 1 tab 01/24/19 21:00 01/24/19 21:50 Multivitamin With PO 1 tab Minerals Tabs Own BEDTIME [facility] Administration Med Non-Formulary Medication 1,000 mg 01/25/19 09:00 [place]-3/Dha/Epa/Fish Oil [[place]-3 Fish Oil 1,000 Mg Sfgl] PO DAILY [facility] Pantoprazole Sodium 40 mg 01/25/19 06:00 Protonix PO DAILY@0600 [facility] Senna/Docusate Sodium 1 tab 01/24/19 17:16 Senna Plus PO BID PRN Constipation Sodium Chloride 10 ml 01/24/19 17:26 Saline Flush FLUSH ASDIRECTED PRN Keep Vein Open Discontinued Medications Generic Name Dose Route Start Last Admin Trade Name Freq PRN Reason Stop Dose Admin Aspirin 324 mg 01/24/19 12:31 01/24/19 11:50 Aspirin PO 01/24/19 12:32 324 mg ONETIME ONE Administration - Re-Assessments/Exams Free Text/Narrative Re-Assessment/Exam: 01/24/19 labs reviewed, patient and baseline anemia and creatinine per our records and with the daughter has told me. CXR negative for any acute abnormalities Lower extremity US -- She has remained asymptomatic since arrival. discussed with hospitalist Dr Ornelas, patient to be admitted for chest pain r/o myocardial infarction Departure - Departure Time of Disposition: 14:30 Disposition: Admitted As Inpatient 67 Condition: Good Clinical Impression: Chest pain, CAD (coronary artery disease) - Discharge Information *PRESCRIPTION DRUG MONITORING PROGRAM REVIEWED*: Not Applicable *COPY OF PRESCRIPTION DRUG MONITORING REPORT IN PATIENT LOS: Not Applicable - My Orders Last 24 Hours: My Active Orders 01/24/19 11:54 EKG 12 Lead [EK] Routine 01/24/19 12:19 VL Duplex Lwr Ext Veins Ltd Rt [US] Stat - Assessment/Plan Last 24 Hours: My Active Orders 01/24/19 11:54 EKG 12 Lead [EK] Routine 01/24/19 12:19 VL Duplex Lwr Ext Veins Ltd Rt [US] Stat
[2019-01-24] MEDS ORDERED: Aspirin 81 MG Tab.Chew PO ONE (12:31)
--- NOTE | 2019-01-24 15:15 | CR ---
INDICATION: Right calf swelling, question DVT. CHEST: PA and lateral views of the chest, 01/24/19, were compared with and again revealed the heart to have a slightly prominent left ventricular contour - left ventricular enlargement is suggested. The aorta is tortuous with calcification in the arch. Bridging hyperostotic changes are noted in the thoracic spine, most prominent in the mid thoracic spine. Somewhat diminished bone density is suggested, which may be on the basis of osteoporosis and should be correlated clinically. Dextroconvex scoliosis of the thoracic spine is moderate in degree. No definite evidence of CHF, infiltrate, or effusion was identified. There is a linear density, however, in the left mid lung field, which may represent linear atelectasis and/or interval fibrosis. Overlying EKG leads are noted. IMPRESSION: 1. No definite acute process, but cannot exclude linear atelectasis in the left mid lung field. 2. Metallic clips noted in the right axillary area, compatible with previous biopsy or other postsurgical change. 3. Degenerative changes and scoliosis thoracic spine. 4. ASHD with LVE. MTDD
[2019-01-24] MEDS ORDERED: Nitroglycerin 0.4 MG Tab.SL SL PRN (17:16)
[2019-01-24] MEDS ORDERED: Acetaminophen 325 MG Tab PO PRN (17:16)
[2019-01-24] MEDS ORDERED: Sodium Chloride 0.9% 10 ML Syringe FLUSH PRN (17:26)
[2019-01-24] MEDS ORDERED: Enoxaparin 30 MG/0.3 ML Syringe SUBCUT SCH (18:00)
--- NOTE | 2019-01-24 18:39 | PCM.HP ---
H&P History of Present Illness - General Date of Service: 01/24/19 Admit Problem/Dx: Admission Diagnosis/Problem Admission Diagnosis/Problem Chest pain, rule out acute myocardial infarction Source of Information: Patient History Limitations: Reports: No Limitations - History of Present Illness Initial Comments - Free Text/Narative: This is an 84-year-old female patient known history of coronary artery disease. She started having back pain in between her scapulas then she started having sharp chest pain. She went to her daughter's and by the time she got there it was much better. She says it radiated to her right jaw. She had stents placed in 2017. [place] she had a recent adenosine stress test was negative. She was seen in the ER here and troponin was negative. Patient has nitroglycerin but passed out when she took 2 onetime ventricular would not take the nitroglycerin. She was given aspirin in the ER. She denies cough, changes in the pain with range motion, radiation the pain other than the back. - Related Data Allergies/Adverse Reactions: Allergies Allergy/AdvReac Type Severity Reaction Status Date / Time nitrofurantoin AdvReac Nausea and Verified 01/14/18 18:26 [From Macrobid] Vomiting Sulfa (Sulfonamide AdvReac Itching Verified 01/14/18 18:26 Antibiotics) Home Medications: Home Meds Acetaminophen 650 mg PO Q4H PRN 06/05/17 [History] Anastrozole [Arimidex] 1 mg PO BEDTIME 06/05/17 [History] Ascorbic Acid [C-1000] 2,000 mg PO DAILY 06/05/17 [History] Aspirin [Lo-Dose Aspirin EC] 81 mg PO BEDTIME 06/05/17 [History] Carvedilol 12.5 mg PO BID 06/05/17 [History] Clopidogrel Bisulfate [Clopidogrel] 75 mg PO DAILY 06/05/17 [History] Ferrous Sulfate 325 mg PO DAILY 06/05/17 [History] Furosemide [Lasix] 20 mg PO DAILY PRN 06/05/17 [History] Gluc/Adarsh-Msm#1/C/Mina/Keaton/Bor [Osteo Bi-Flex Caplet] 2 tab PO BEDTIME 06/05/17 [History] Levothyroxine 75 mcg PO DAILY@0600 06/05/17 [History] Multivitamin with Minerals [Multiple Vitamin] 1 tab PO BEDTIME 06/05/17 [History ] Nitroglycerin 0.4 mg SL Q5M PRN 06/05/17 [History] [place]-3/DHA/Epa/Fish Oil [[place]-3 Fish Oil 1,000 MG Sfgl] 1,000 mg PO DAILY [History] Pantoprazole [ProTONIX] 40 mg PO DAILY@0600 06/05/17 [History] Sennosides/Docusate Sodium [Senna-Docusate Sodium] 1 tab PO BID PRN 01/14/18 [ History] Calcium Carbonate/Vitamin D3 [Calcium 600 + Vit D 400 Softgl] 1 tab PO DAILY 05/05 [History] Cholecalciferol (Vitamin D3) [Vitamin D3] 1,000 unit PO BID 01/24/19 [History] Cranberry 500 mg PO BID 01/24/19 [History] Cyanocobalamin (Vitamin B12) [Vitamin B12] 500 mg PO DAILY 01/24/19 [History] Fenofibrate 54 mg PO BEDTIME 01/24/19 [History] atorvaSTATin [Lipitor] 20 mg PO BEDTIME 01/24/19 [History] Past Medical History - Past Health History Medical/Surgical History: Denies Medical/Surgical History HEENT History: Reports: Other (See Below) Other HEENT History: wears glasses Cardiovascular History: Reports: CAD, High Cholesterol, Hypertension, VT, Stents , Other (See Below) Other Cardiovascular History: slight damage to wall per echo Respiratory History: Reports: Pneumonia, Recurrent Gastrointestinal History: Reports: Other (See Below) Other Gastrointestinal History: some difficulty swallowing with talk of doing EGD in the future Genitourinary History: Reports: UTI, Recurrent Other Genitourinary History: "chronic bladder infection" RN PLASTICS History: Reports: Other (See Below) Other OB/BYN History: hysterectomy for hemorrhage Musculoskeletal History: Reports: Arthritis, Fibromyalgia Other Musculoskeletal History: back, knees, neck Neurological History: Reports: Other (See Below) Other Neuro History: headaches due to sinus issues Endocrine/Metabolic History: Reports: Hypothyroidism Hematologic History: Reports: Anemia Oncologic (Cancer) History: Reports: Other (See Below) Other Oncologic History: 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 Dermatologic History: Reports: Other (See Below) Other Dermatologic History: facial skin cancer - Infectious Disease History Infectious Disease History: Reports: Chicken Pox, Measles, Mumps - Past Surgical History HEENT Surgical History: Reports: Other (See Below) Other HEENT Surgeries/Procedures: precancerous spots facially Cardiovascular Surgical History: Reports: Percutaneous Transluminal Angioplasty , Other (See Below) Other Cardiovascular Surgeries/Procedures: 12/01 and 05/03 cardiac stents, Respiratory Surgical History: Reports: None GI Surgical History: Reports: Appendectomy, Colonoscopy Female Surgical History: Reports: Other (See Below) Other Female Surgeries/Procedures: right breast lumpectomy, with 4-5 nodes removed with Musculoskeletal Surgical History: Reports: None, Other (See Below) Other Musculoskeletal Surgeries/Procedures:: disc surgery Social & Family History - Family History Family Medical History: Noncontributory - Tobacco Use Smoking Status *Q: Never Smoker Second Hand Smoke Exposure: No - Caffeine Use Caffeine Use: Reports: None - Recreational Drug Use Recreational Drug Use: No - Living Situation & Occupation Living situation: Reports: Occupation: Retired H&P Review of Systems - Review of Systems: Review Of Systems: See Below General: Reports: No Symptoms HEENT: Reports: No Symptoms Pulmonary: Denies: Shortness of Breath, Pleuritic Chest Pain Cardiovascular: Reports: Chest Pain. Denies: Edema Gastrointestinal: Reports: No Symptoms Genitourinary: Reports: No Symptoms Musculoskeletal: Reports: No Symptoms Skin: Reports: No Symptoms Psychiatric: Reports: No Symptoms Neurological: Reports: No Symptoms Hematologic/Lymphatic: Reports: No Symptoms Immunologic: Reports: No Symptoms Exam - Exam Exam: See Below - Vital Signs Vital Signs: Last Vital Signs Temp 98.1 F 01/24/19 11:45 Pulse 70 01/24/19 14:45 Resp 18 01/24/19 14:45 BP 123/67 01/24/19 14:45 Pulse Ox 99 01/24/19 14:45 Weight: 161 lb 6.4 oz - Exam General: Alert, Oriented, Cooperative HEENT: Hearing Intact, Posterior Pharynx Clear, TMs Clear Neck: Supple, Trachea Midline Lungs: Clear to Auscultation, Normal Respiratory Effort. No: Crackles, Rales, Rhonchi Cardiovascular: Regular Rate, Regular Rhythm. No: Systolic Murmur, Diastolic Murmur GI/Abdominal Exam: Normal Bowel Sounds, Soft, Non-Tender, No Organomegaly, No Distention, No Abnormal Bruit, No Mass Back Exam: Normal Inspection, Full Range of Motion Extremities: Normal Inspection, No Pedal Edema Skin: Warm, Dry, Intact Neurological: Normal Speech Neuro Extensive - Mental Status: Alert, Oriented x3, Normal Mood/Affect, Normal Cognition, Memory Intact Psychiatric: Alert, Normal Affect, Normal Mood - Patient Data Lab Results Last 24 hrs: Laboratory Results - last 24 hr 01/24/19 01/24/19 01/24/19 Range/Units 11:55 11:55 11:55 WBC 7.5 (4.5-12.0) X10-3/uL RBC 3.66 (3.23-5.20) x10(6)uL Hgb 10.0 L (11.5-15.5) g/dL Hct 30.3 (30.0-51.3) % MCV 82.7 (80-96) fL MCH 27.3 L (27.7-33.6) pg MCHC 33.0 (32.2-35.4) g/dL RDW 12.8 (11.5-15.5) % Plt Count 189 (125-369) X10(3)uL MPV 7.4 (7.4-10.4) fL Neut % (Auto) 77.6 (46-82) % Lymph % (Auto) 11.9 L (13-37) % [place] % (Auto) 8.7 (4-12) % Eos % (Auto) 2 (1.0-5.0) % Baso % (Auto) 0 (0-2) % Neut # (Auto) 5.8 (1.6-8.3) # Lymph # (Auto) 0.9 (0.6-5.0) # [place] # (Auto) 0.7 (0.0-1.3) # Eos # (Auto) 0.1 (0.0-0.8) # Baso # (Auto) 0.0 (0.0-0.2) # Sodium 141 (135-145) mmol/L Potassium 4.4 (3.5-5.3) mmol/L Chloride 106 (100-110) mmol/L Carbon Dioxide 25 (21-32) mmol/L BUN 32 H (7-18) mg/dL Creatinine 1.3 H (0.55-1.02) mg/dL Est Cr Clr Drug Dosing TNP Estimated GFR (MDRD) 39 L (>60) BUN/Creatinine Ratio 24.6 H (9-20) Glucose 102 (80-116) mg/dL Calcium 9.3 (8.6-10.2) mg/dL Magnesium 1.8 (1.8-2.5) mg/dL Troponin I < 0.017 L (<0.017-0.056) ng/mL 01/24/19 Range/Units 17:20 WBC (4.5-12.0) X10-3/uL RBC (3.23-5.20) x10(6)uL Hgb (11.5-15.5) g/dL Hct (30.0-51.3) % MCV (80-96) fL MCH (27.7-33.6) pg MCHC (32.2-35.4) g/dL RDW (11.5-15.5) % Plt Count (125-369) X10(3)uL MPV (7.4-10.4) fL Neut % (Auto) (46-82) % Lymph % (Auto) (13-37) % [place] % (Auto) (4-12) % Eos % (Auto) (1.0-5.0) % Baso % (Auto) (0-2) % Neut # (Auto) (1.6-8.3) # Lymph # (Auto) (0.6-5.0) # [place] # (Auto) (0.0-1.3) # Eos # (Auto) (0.0-0.8) # Baso # (Auto) (0.0-0.2) # Sodium (135-145) mmol/L Potassium (3.5-5.3) mmol/L Chloride (100-110) mmol/L Carbon Dioxide (21-32) mmol/L BUN (7-18) mg/dL Creatinine (0.55-1.02) mg/dL Est Cr Clr Drug Dosing Estimated GFR (MDRD) (>60) BUN/Creatinine Ratio (9-20) Glucose (80-116) mg/dL Calcium (8.6-10.2) mg/dL Magnesium (1.8-2.5) mg/dL Troponin I < 0.017 L (<0.017-0.056) ng/mL Result Diagrams: 01/24/19 11:55 01/24/19 11:55 - Problem List (1) Chest pain SNOMED Code(s): 72195014 ICD Code: R07.9 - CHEST PAIN, UNSPECIFIED Status: Acute Current Visit: Yes (2) CAD (coronary artery disease) SNOMED Code(s): 15186518 ICD Code: I25.10 - ATHSCL HEART DISEASE OF [place] CORONARY ARTERY W/O ANG PCTRS Status: Acute Current Visit: No (3) [id number] renal failure SNOMED Code(s): 698532622 ICD Code: N17.9 - ACUTE KIDNEY FAILURE, UNSPECIFIED; N18.9 - CHRONIC KIDNEY DISEASE, UNSPECIFIED Status: Acute Current Visit: No Problem List Initiated/Reviewed/Updated: Yes Orders Last 24hrs: Active Orders 24 hr Category Date Time Status Patient Status Manage Transfer [TRANSFER] Routine ADT 01/24/19 13:56 Active EKG Documentation Completion [RC] ASDIRECTED Care 01/24/19 17:21 Active EKG Documentation Completion [RC] ASDIRECTED Care 01/24/19 17:25 Active Telemetry Monitoring [Cardiac Monitoring] [RC] .As Care 01/24/19 17:24 Active Directed Up With Assistance [RC] ASDIRECTED Care 01/24/19 17:23 Active Cardiac Diet [Heart Healthy Diet] [DIET] Diet 01/25/19 Breakfast Active VL Duplex Lwr Ext Veins Ltd Rt [US] Stat Exams 01/24/19 12:19 Taken CBC WITH AUTO DIFF [HEME] AM Lab 01/25/19 05:11 Ordered COMPREHENSIVE METABOLIC PN,CMP [CHEM] AM Lab 01/25/19 05:11 Ordered TROPONIN I [CHEM] AM Lab 01/25/19 05:11 Ordered Acetaminophen [Tylenol] Med 01/24/19 17:16 Pending 650 mg PO Q4H PRN Anastrozole [Arimidex] Med 01/24/19 21:00 Ordered 1 mg PO BEDTIME Ascorbic Acid [C-1000] Med 01/25/19 09:00 Ordered 2,000 mg PO DAILY Aspirin [Halfprin] Med 01/24/19 21:00 Ordered 81 mg PO BEDTIME Calcium Carbonate/Vitamin D3 [Calcium 600 + Vit D 400 Med 01/25/19 09:00 Ordered Softgl] 1 tab PO DAILY Carvedilol [Coreg] Med 01/24/19 21:00 Ordered 12.5 mg PO BID Cholecalciferol (Vitamin D3) [Vitamin D3] Med 01/24/19 21:00 Ordered 1,000 unit PO BID Clopidogrel [Plavix] Med 01/25/19 09:00 Ordered 75 mg PO DAILY Cranberry Med 01/24/19 21:00 Ordered 500 mg PO BID Cyanocobalamin (Vitamin B12) [Vitamin B12] Med 01/25/19 09:00 Ordered 500,000 mcg PO DAILY Docusate Sodium/Sennosides [Senna Plus] Med 01/24/19 17:16 Ordered 1 tab PO BID PRN Enoxaparin [Lovenox] Med 01/24/19 18:00 Active 30 mg SUBCUT Q24H Fenofibrate [Fenofibrate] Med 01/24/19 21:00 Ordered 54 mg PO BEDTIME Ferrous Sulfate Med 01/25/19 09:00 Ordered 325 mg PO DAILY Gluc/Adarsh-Msm#1/C/Mina/[place]/Bor [Osteo Bi-Flex Caplet] Med 01/24/19 21:00 Ordered 2 tab PO BEDTIME Levothyroxine Med 01/25/19 06:00 Ordered 75 mcg PO DAILY@0600 Multivitamin with Minerals [Multiple Vitamin] Med 01/24/19 21:00 Ordered 1 tab PO BEDTIME Nitroglycerin [Nitrostat] Med 01/24/19 17:16 Ordered 0.4 mg SL Q5M PRN [place]-3/DHA/Epa/Fish Oil [[place]-3 Fish Oil 1,000 MG Med 01/25/19 09:00 Ordered Sfgl] 1,000 mg PO DAILY Pantoprazole [ProTONIX] Med 01/25/19 06:00 Ordered 40 mg PO DAILY@0600 Sodium Chloride 0.9% [Saline Flush] Med 01/24/19 17:26 Active 10 ml FLUSH ASDIRECTED PRN atorvaSTATin [Lipitor] Med 01/24/19 21:00 Ordered 20 mg PO BEDTIME Convert IV to Saline Lock [OM.PC] Routine Oth 01/24/19 17:26 Ordered Peripheral IV Insertion Adult [OM.PC] Routine Oth 01/24/19 17:26 Ordered Resuscitation Status Routine Resus Stat 01/24/19 13:59 Ordered EKG 12 Lead [EK] AM Ther 01/25/19 05:11 Ordered EKG 12 Lead [EK] Routine Ther 01/24/19 11:54 Ordered EKG 12 Lead [EK] Routine Ther 01/24/19 17:21 Ordered Medication Orders Acetaminophen (Tylenol) 650 mg PO Q4H PRN PRN Reason: Pain Anastrozole (Arimidex) 1 mg PO BEDTIME [place] Aspirin (Halfprin) 81 mg PO BEDTIME [place] Atorvastatin Calcium (Lipitor) 20 mg PO BEDTIME [place] Carvedilol (Coreg) 12.5 mg PO BID [place] Clopidogrel Bisulfate (Plavix) 75 mg PO DAILY [place] Cranberry (Cranberry) 500 mg PO BID [place] Cyanocobalamin (Vitamin B12) 500,000 mcg PO DAILY [place] Enoxaparin Sodium (Lovenox) 30 mg SUBCUT Q24H [place] Ferrous Sulfate (Ferrous Sulfate) 325 mg PO DAILY [place] Levothyroxine Sodium (Levothyroxine) 75 mcg PO DAILY@0600 [place] Nitroglycerin (Nitrostat) 0.4 mg SL Q5M PRN PRN Reason: Chest Pain Non-Formulary Medication (Ascorbic Acid [C-1000]) 2,000 mg PO DAILY [place] Non-Formulary Medication (Calcium Carbonate/Vitamin D3 [Calcium 600 + Vit D 400 Softgl]) 1 tab PO DAILY [place] Non-Formulary Medication (Cholecalciferol (Vitamin D3) [Vitamin D3]) 1,000 unit PO BID [place] Non-Formulary Medication (Fenofibrate [Fenofibrate]) 54 mg PO BEDTIME [place] Non-Formulary Medication (Gluc/Adarsh-Msm#1/C/Mina/[place]/Bor [Osteo Bi-Flex Caplet] ) 2 tab PO BEDTIME [place] Non-Formulary Medication (Multivitamin With Minerals [Multiple Vitamin]) 1 tab PO BEDTIME [place] Non-Formulary Medication ([place]-3/Dha/Epa/Fish Oil [[place]-3 Fish Oil 1,000 Mg Sfgl]) 1,000 mg PO DAILY [place] Pantoprazole Sodium (Protonix) 40 mg PO DAILY@0600 [place] Senna/Docusate Sodium (Senna Plus) 1 tab PO BID PRN PRN Reason: Constipation Sodium Chloride (Saline Flush) 10 ml FLUSH ASDIRECTED PRN PRN Reason: Keep Vein Open Assessment/Plan Comment:: 1. Admit for observation rule out VT. 2. Cardiac diet 3. Telemetry 4. Nitroglycerin when necessary for pain. 5. Continue home meds 6. Patient's a full code 7. Lovenox 30 mg every every 24 hours 8. Up with assist 9. Serial troponins and EKGs.
[2019-01-24] MEDS ORDERED: OSTEO BI FLEX PO SCH (21:00)
[2019-01-24] MEDS ORDERED: Aspirin 81 MG Tab.EC **OWN MED PO SCH (21:00)
[2019-01-24] MEDS ORDERED: Anastrozole 1 MG Tab **OWN MED PO SCH (21:00)
[2019-01-24] MEDS ORDERED: [UNRECOGNIZED DRUG - OTHER] PO SCH (21:00)
[2019-01-24] MEDS ORDERED: FENOFIBRATE 54 MG PO SCH (21:00)
[2019-01-24] MEDS: CHOLECALCIFEROL 1000 UNIT PO SCH (21:46)
[2019-01-24] MEDS: CRANBERRY 500 MG PO SCH (21:48)
[2019-01-24] MEDS: Carvedilol 12.5 MG Tab **OWN MED PO SCH (21:49)
[2019-01-25] MEDS ORDERED: Pantoprazole 40 MG Tab.CR **OWN MED PO SCH (06:00)
[2019-01-25] MEDS ORDERED: Levothyroxine 75 MCG Tab **OWN MED PO SCH (06:00)
--- NOTE | 2019-01-25 08:18 | US ---
INDICATION: Right calf swelling, question DVT. DUPLEX ULTRASOUND, RIGHT LOWER EXTREMITY VEINS: Utilizing 2-D real time, duplex Doppler spectral analysis and color flow imaging, examination of the right lower extremity veins, including the common femoral vein, proximal greater saphenous vein, proximal deep femoral vein, proximal femoral vein, mid femoral vein, distal femoral vein, popliteal vein, posterior tibial vein, anterior tibial vein, and peroneal vein, revealed no evidence of deep venous thrombosis or obstruction. Compression views showed no abnormal lack of compression to suggest thrombosis. No evidence of incompetence of the valves was identified. IMPRESSION: Duplex ultrasound, right lower extremity veins, shows no evidence of deep venous thrombosis or incompetence. [facility]
[2019-01-25] MEDS: CRANBERRY 500 MG PO SCH (08:23)
[2019-01-25] MEDS: CHOLECALCIFEROL 1000 UNIT PO SCH (08:23)
[2019-01-25] MEDS: Carvedilol 12.5 MG Tab **OWN MED PO SCH (08:25)
[2019-01-25] MEDS ORDERED: Cyanocobalamin (Vitamin B12) 1,000 MCG Tab *PTOM PO SCH (09:00)
[2019-01-25] MEDS ORDERED: CALCIUM PO SCH (09:00)
[2019-01-25] MEDS ORDERED: Clopidogrel 75 MG Tab *PTOM PO SCH (09:00)
[2019-01-25] MEDS ORDERED: ASCORBIC ACID PO SCH (09:00)
[2019-01-25] MEDS ORDERED: VIT D PO SCH (09:00)
[2019-01-25] MEDS ORDERED: Ferrous Sulfate 325 MG Tab *PTOM PO SCH (09:00)
--- NOTE | 2019-01-25 09:15 | PCM.PN ---
- General Info Date of Service: 01/25/19 Admission Dx/Problem (Free Text): Patient was asymptomatic for chest pain or back pain only for admission and overnight pH has some left jaw pain that she's been dealing with for long time. Hurts when she bites down. She saw the chiropractor in [place] to helps her when he doesn't manipulation and a comes back. She says it hurts to chew. She denies shortness of breath or fevers, nausea. - Patient Data Vitals - Most Recent: Last Vital Signs Temp 98.2 F 01/25/19 08:00 Pulse 69 01/25/19 08:25 Resp 16 01/25/19 08:00 BP 133/58 L 01/25/19 08:25 Pulse Ox 97 01/25/19 08:00 Weight - Most Recent: 161 lb 6.4 oz Lab Results Last 24 Hours: Laboratory Results - last 24 hr 01/24/19 01/24/19 01/24/19 Range/Units 11:55 11:55 11:55 WBC 7.5 (4.5-12.0) X10-3/uL RBC 3.66 (3.23-5.20) x10(6)uL Hgb 10.0 L (11.5-15.5) g/dL Hct 30.3 (30.0-51.3) % MCV 82.7 (80-96) fL MCH 27.3 L (27.7-33.6) pg MCHC 33.0 (32.2-35.4) g/dL RDW 12.8 (11.5-15.5) % Plt Count 189 (125-369) X10(3)uL MPV 7.4 (7.4-10.4) fL Neut % (Auto) 77.6 (46-82) % Lymph % (Auto) 11.9 L (13-37) % Crowley % (Auto) 8.7 (4-12) % Eos % (Auto) 2 (1.0-5.0) % Baso % (Auto) 0 (0-2) % Neut # (Auto) 5.8 (1.6-8.3) # Lymph # (Auto) 0.9 (0.6-5.0) # Crowley # (Auto) 0.7 (0.0-1.3) # Eos # (Auto) 0.1 (0.0-0.8) # Baso # (Auto) 0.0 (0.0-0.2) # Add Manual Diff Neutrophils % (Manual) (46-82) % Band Neutrophils % (0-6) % Lymphocytes % (Manual) (13-37) % Monocytes % (Manual) (4-12) % Eosinophils % (Manual) (0-5) % Sodium 141 (135-145) mmol/L Potassium 4.4 (3.5-5.3) mmol/L Chloride 106 (100-110) mmol/L Carbon Dioxide 25 (21-32) mmol/L BUN 32 H (7-18) mg/dL Creatinine 1.3 H (0.55-1.02) mg/dL Est Cr Clr Drug Dosing TNP Estimated GFR (MDRD) 39 L (>60) BUN/Creatinine Ratio 24.6 H (9-20) Glucose 102 (80-116) mg/dL Calcium 9.3 (8.6-10.2) mg/dL Magnesium 1.8 (1.8-2.5) mg/dL Total Bilirubin (0.1-1.3) mg/dL AST (5-25) IU/L ALT (12-36) U/L Alkaline Phosphatase (56-112) IU/L Troponin I < 0.017 L (<0.017-0.056) ng/mL Total Protein (6.0-8.0) g/dL Albumin (3.2-4.6) g/dL Globulin g/dL Albumin/Globulin Ratio 01/24/19 01/25/19 01/25/19 Range/Units 17:20 06:12 06:12 WBC 8.2 (4.5-12.0) X10-3/uL RBC 3.50 (3.23-5.20) x10(6)uL Hgb 9.5 L (11.5-15.5) g/dL Hct 28.8 L (30.0-51.3) % MCV 82.3 (80-96) fL MCH 27.1 L (27.7-33.6) pg MCHC 33.0 (32.2-35.4) g/dL RDW 12.7 (11.5-15.5) % Plt Count 182 (125-369) X10(3)uL MPV 7.8 (7.4-10.4) fL Neut % (Auto) (46-82) % Lymph % (Auto) (13-37) % Crowley % (Auto) (4-12) % Eos % (Auto) (1.0-5.0) % Baso % (Auto) (0-2) % Neut # (Auto) (1.6-8.3) # Lymph # (Auto) (0.6-5.0) # Crowley # (Auto) (0.0-1.3) # Eos # (Auto) (0.0-0.8) # Baso # (Auto) (0.0-0.2) # Add Manual Diff Yes Neutrophils % (Manual) 75 (46-82) % Band Neutrophils % 1 (0-6) % Lymphocytes % (Manual) 17 (13-37) % Monocytes % (Manual) 5 (4-12) % Eosinophils % (Manual) 2 (0-5) % Sodium 142 (135-145) mmol/L Potassium 4.5 (3.5-5.3) mmol/L Chloride 109 (100-110) mmol/L Carbon Dioxide 25 (21-32) mmol/L BUN 30 H (7-18) mg/dL Creatinine 1.2 H (0.55-1.02) mg/dL Est Cr Clr Drug Dosing 31.96 Estimated GFR (MDRD) 43 L (>60) BUN/Creatinine Ratio 25.0 H (9-20) Glucose 120 H (80-116) mg/dL Calcium 8.9 (8.6-10.2) mg/dL Magnesium (1.8-2.5) mg/dL Total Bilirubin 0.3 (0.1-1.3) mg/dL AST 32 H (5-25) IU/L ALT 33 (12-36) U/L Alkaline Phosphatase 53 L (56-112) IU/L Troponin I < 0.017 L (<0.017-0.056) ng/mL Total Protein 6.7 (6.0-8.0) g/dL Albumin 3.1 L (3.2-4.6) g/dL Globulin 3.6 g/dL Albumin/Globulin Ratio 0.9 01/25/19 Range/Units 06:12 WBC (4.5-12.0) X10-3/uL RBC (3.23-5.20) x10(6)uL Hgb (11.5-15.5) g/dL Hct (30.0-51.3) % MCV (80-96) fL MCH (27.7-33.6) pg MCHC (32.2-35.4) g/dL RDW (11.5-15.5) % Plt Count (125-369) X10(3)uL MPV (7.4-10.4) fL Neut % (Auto) (46-82) % Lymph % (Auto) (13-37) % Crowley % (Auto) (4-12) % Eos % (Auto) (1.0-5.0) % Baso % (Auto) (0-2) % Neut # (Auto) (1.6-8.3) # Lymph # (Auto) (0.6-5.0) # Crowley # (Auto) (0.0-1.3) # Eos # (Auto) (0.0-0.8) # Baso # (Auto) (0.0-0.2) # Add Manual Diff Neutrophils % (Manual) (46-82) % Band Neutrophils % (0-6) % Lymphocytes % (Manual) (13-37) % Monocytes % (Manual) (4-12) % Eosinophils % (Manual) (0-5) % Sodium (135-145) mmol/L Potassium (3.5-5.3) mmol/L Chloride (100-110) mmol/L Carbon Dioxide (21-32) mmol/L BUN (7-18) mg/dL Creatinine (0.55-1.02) mg/dL Est Cr Clr Drug Dosing Estimated GFR (MDRD) (>60) BUN/Creatinine Ratio (9-20) Glucose (80-116) mg/dL Calcium (8.6-10.2) mg/dL Magnesium (1.8-2.5) mg/dL Total Bilirubin (0.1-1.3) mg/dL AST (5-25) IU/L ALT (12-36) U/L Alkaline Phosphatase (56-112) IU/L Troponin I < 0.017 L (<0.017-0.056) ng/mL Total Protein (6.0-8.0) g/dL Albumin (3.2-4.6) g/dL Globulin g/dL Albumin/Globulin Ratio Med Orders - Current: Current Medications Acetaminophen (Tylenol) 650 mg PO Q4H PRN PRN Reason: Pain Anastrozole (Arimidex) 1 mg PO BEDTIME [facility] Last Admin: 01/24/19 21:49 Dose: 1 mg Aspirin (Halfprin) 81 mg PO BEDTIME [facility] Last Admin: 01/24/19 21:45 Dose: 81 mg Atorvastatin Calcium (Lipitor) 20 mg PO BEDTIME [facility] Last Admin: 01/24/19 21:48 Dose: 20 mg Carvedilol (Coreg) 12.5 mg PO BIDMEALS [facility] Last Admin: 01/25/19 08:25 Dose: 12.5 mg Clopidogrel Bisulfate (Plavix) 75 mg PO DAILY [facility] Last Admin: 01/25/19 08:25 Dose: 75 mg Cranberry (Cranberry) 500 mg PO BID [facility] Last Admin: 01/25/19 08:23 Dose: 500 mg Cyanocobalamin (Vitamin B12) 1,000 mcg PO DAILY [facility] Last Admin: 01/25/19 08:22 Dose: 1,000 mcg Enoxaparin Sodium (Lovenox) 30 mg SUBCUT Q24H [facility] Last Admin: 01/24/19 19:46 Dose: 30 mg Ferrous Sulfate (Ferrous Sulfate) 325 mg PO DAILY [facility] Last Admin: 01/25/19 08:24 Dose: 325 mg Levothyroxine Sodium (Levothyroxine) 75 mcg PO DAILY@0600 [facility] Last Admin: 01/25/19 05:50 Dose: 75 mcg Nitroglycerin (Nitrostat) 0.4 mg SL Q5M PRN PRN Reason: Chest Pain (Ascorbic Acid [C- (1000] ) *Ptom) 0 mg PO DAILY [facility] Last Admin: 01/25/19 08:24 Dose: 1,000 mg Calcium 500 + Vit D (400 *Ptom) 1 tab PO DAILY [facility] Last Admin: 01/25/19 08:23 Dose: 1 tab Cholecalciferol ( Vitamin D3) 1,000 Unit Softgel Own Med 0 unit PO BID [facility] Last Admin: 01/25/19 08:23 Dose: 1,000 unit Fenofibrate 54 Mg (Tab Own Med) 0 mg PO BEDTIME [facility] Last Admin: 01/24/19 21:49 Dose: 54 mg Osteo Bi-Flex Tabs * (*Own Med) 2 tab PO BEDTIME [facility] Last Admin: 01/24/19 21:45 Dose: 2 tab Complete Multivitamin With Minerals Tabs Own Med 1 tab PO BEDTIME [facility] Last Admin: 01/24/19 21:50 Dose: 1 tab [Alkol-3 Fish Oil 1, (040 Mg Sfgl] *Ptom) 0 mg PO DAILY [facility] Last Admin: 01/25/19 08:22 Dose: 1,040 mg Pantoprazole Sodium (Protonix) 40 mg PO DAILY@0600 [facility] Last Admin: 01/25/19 05:50 Dose: 40 mg Senna/Docusate Sodium (Senna Plus) 1 tab PO BID PRN PRN Reason: Constipation Sodium Chloride (Saline Flush) 10 ml FLUSH ASDIRECTED PRN PRN Reason: Keep Vein Open Discontinued Medications Aspirin (Aspirin) 324 mg PO ONETIME ONE Stop: 01/24/19 12:32 Last Admin: 01/24/19 11:50 Dose: 324 mg - Exam General: Alert, Oriented Lungs: Clear to Auscultation, Normal Respiratory Effort Cardiovascular: Regular Rate, Regular Rhythm, No Murmurs Extremities: No Pedal Edema EKG INTERPRETATION EKG Interpretation Comments: EKGs [address] depression in aVL only. The rest of the EKG is normal sinus rhythm without ST abnormalities - Problem List & Annotations (1) Chest pain SNOMED Code(s): 69318806 Code(s): R07.9 - CHEST PAIN, UNSPECIFIED Status: Acute Current Visit: Yes (2) CAD (coronary artery disease) SNOMED Code(s): 27782310 Code(s): I25.10 - ATHSCL HEART DISEASE OF [place] CORONARY ARTERY W/O ANG PCTRS Status: Acute Current Visit: Yes (3) [id number] renal failure SNOMED Code(s): 136311348 Code(s): N17.9 - ACUTE KIDNEY FAILURE, UNSPECIFIED; N18.9 - CHRONIC KIDNEY DISEASE, UNSPECIFIED Status: Acute Current Visit: No (4) TMJ (dislocation of temporomandibular joint) SNOMED Code(s): 986249286 Code(s): S03.00XA - DISLOCATION OF JAW, UNSPECIFIED SIDE, INITIAL ENCOUNTER Status: Acute Current Visit: Yes - Problem List Review Problem List Initiated/Reviewed/Updated: Yes - My Orders Last 24 Hours: My Active Orders 01/24/19 17:16 Acetaminophen [Tylenol] 650 mg PO Q4H PRN Docusate Sodium/Sennosides [Senna Plus] 1 tab PO BID PRN Nitroglycerin [Nitrostat] 0.4 mg SL Q5M PRN 01/24/19 17:21 EKG Documentation Completion [RC] ASDIRECTED EKG 12 Lead [EK] Routine 01/24/19 17:23 Up With Assistance [RC] QSHIFT 01/24/19 17:25 EKG Documentation Completion [RC] ASDIRECTED 01/24/19 17:26 Sodium Chloride 0.9% [Saline Flush] 10 ml FLUSH ASDIRECTED PRN Convert IV to Saline Lock [OM.PC] Routine Peripheral IV Insertion Adult [OM.PC] Routine 01/24/19 18:00 Enoxaparin [Lovenox] 30 mg SUBCUT Q24H 01/24/19 21:00 Anastrozole [Arimidex] 1 mg PO BEDTIME Aspirin [Halfprin] 81 mg PO BEDTIME Carvedilol [Coreg] 12.5 mg PO BIDMEALS Cholecalciferol (Vitamin D3) [Vitamin D3] 0 unit PO BID Cranberry 500 mg PO BID Fenofibrate [Fenofibrate] 0 mg PO BEDTIME Gluc/Adarsh-Msm#1/C/Mina/Keaton/Bor [Osteo Bi-Flex Caplet] 2 tab PO BEDTIME Multivitamin with Minerals [Multiple Vitamin] 1 tab PO BEDTIME atorvaSTATin [Lipitor] 20 mg PO BEDTIME 01/25/19 05:11 EKG 12 Lead [EK] AM 01/25/19 06:00 Levothyroxine 75 mcg PO DAILY@0600 Pantoprazole [ProTONIX] 40 mg PO DAILY@0600 01/25/19 07:52 Ready for Discharge [RC] PER UNIT ROUTINE 01/25/19 09:00 Ascorbic Acid [C-1000] 0 mg PO DAILY Calcium Carbonate/Vitamin D3 [Calcium 600 + Vit D 400 Softgl] 1 tab PO DAILY Clopidogrel [Plavix] 75 mg PO DAILY Cyanocobalamin (Vitamin B12) [Vitamin B12] 1,000 mcg PO DAILY Ferrous Sulfate 325 mg PO DAILY Alkol-3/DHA/Epa/Fish Oil [Alkol-3 Fish Oil 1,000 MG Sfgl] 0 mg PO DAILY 01/25/19 Breakfast Cardiac Diet [Heart Healthy Diet] [DIET] - Plan Plan:: 1. Discharge to home 2. I will have our clinic set up to see cardiology. 3. Recheck with her primary provider in one week.
--- NOTE | 2019-01-25 09:17 | PCM.DCSUM1 ---
Discharge Summary - Hospital Course Free Text/Narrative:: Hospital course-patient was asymptomatic when she got to the hospital. She was admitted overnight with telemetry and troponin and EKGs 3. Troponins 3 were negative. She little [address] depression in aVL but the rest of the EKG was normal. Should no symptoms except for some jaw pain that she's had for long time was mostly [place] skeletal. I told her she treated outpatient with Tylenol 3 times a day and ice and possibly see a dentist. We'll discharge to home and I counseled her on how to use her nitroglycerin if she is in trouble. She'll see her primary provider in one week. We will set her for cardiology outpatient. She is chronically anemic and has mild renal failure that was stable. Brief History: This is an 84-year-old female patient known history of coronary artery disease. She started having back pain in between her scapulas then she started having sharp chest pain. She went to her daughter's and by the time she got there it was much better. She says it radiated to her right jaw. She had stents placed in 2017. Pearly she had a recent adenosine stress test was negative. She was seen in the ER here and troponin was negative. Patient has nitroglycerin but passed out when she took 2 onetime ventricular would not take the nitroglycerin. She was given aspirin in the ER. She denies cough, changes in the pain with range motion, radiation the pain other than the back. Diagnosis: Stroke: No - Discharge Data Discharge Date: 01/25/19 Discharge Disposition: Home, Self-Care 01 Condition: Stable - Discharge Diagnosis/Problem(s) (1) Chest pain SNOMED Code(s): 92537241 ICD Code: R07.9 - CHEST PAIN, UNSPECIFIED Status: Acute Current Visit: Yes (2) CAD (coronary artery disease) SNOMED Code(s): 63596663 ICD Code: I25.10 - ATHSCL HEART DISEASE OF [place] CORONARY ARTERY W/O ANG PCTRS Status: Acute Current Visit: Yes (3) Rqher-lv-lqnixzk renal failure SNOMED Code(s): 394235951 ICD Code: N17.9 - ACUTE KIDNEY FAILURE, UNSPECIFIED; N18.9 - CHRONIC KIDNEY DISEASE, UNSPECIFIED Status: Acute Current Visit: No (4) TMJ (dislocation of temporomandibular joint) SNOMED Code(s): 172711380 ICD Code: S03.00XA - DISLOCATION OF JAW, UNSPECIFIED SIDE, INITIAL ENCOUNTER Status: Acute Current Visit: Yes Qualifiers: Encounter type: initial encounter Qualified Code(s): S03.00XA - Dislocation of jaw, unspecified side, initial encounter - Patient Instructions Diet: Heart Healthy Diet Activity: As Tolerated Driving: May Drive Today Showering/Bathing: May Shower Other/Special Instructions: 1. Recheck with Dr. Etienne in 1 week. 2. We will set up outpatient appointment with cardiology up through our clinic. 3. 1000 mg of Tylenol 3 times a day plus ice 3 times a day to the left jaw. - Discharge Plan *PRESCRIPTION DRUG MONITORING PROGRAM REVIEWED*: Not Applicable *COPY OF PRESCRIPTION DRUG MONITORING REPORT IN PATIENT LOS: Not Applicable Home Medications: Home Meds Acetaminophen 650 mg PO Q4H PRN 06/05/17 [History] Anastrozole [Arimidex] 1 mg PO BEDTIME 06/05/17 [History] Ascorbic Acid [C-1000] 2,000 mg PO DAILY 06/05/17 [History] Aspirin [Lo-Dose Aspirin EC] 81 mg PO BEDTIME 06/05/17 [History] Carvedilol 12.5 mg PO BID 06/05/17 [History] Clopidogrel Bisulfate [Clopidogrel] 75 mg PO DAILY 06/05/17 [History] Ferrous Sulfate 325 mg PO DAILY 06/05/17 [History] Furosemide [Lasix] 20 mg PO DAILY PRN 06/05/17 [History] Gluc/Adarsh-Msm#1/C/Mina/Keaton/Bor [Osteo Bi-Flex Caplet] 2 tab PO BEDTIME 06/05/17 [History] Levothyroxine 75 mcg PO DAILY@0600 06/05/17 [History] Multivitamin with Minerals [Multiple Vitamin] 1 tab PO BEDTIME 06/05/17 [History ] Nitroglycerin 0.4 mg SL Q5M PRN 06/05/17 [History] Gilman-3/DHA/Epa/Fish Oil [Gilman-3 Fish Oil 1,000 MG Sfgl] 1,000 mg PO DAILY [History] Pantoprazole [ProTONIX] 40 mg PO DAILY@0600 06/05/17 [History] Sennosides/Docusate Sodium [Senna-Docusate Sodium] 1 tab PO BID PRN 01/14/18 [ History] Calcium Carbonate/Vitamin D3 [Calcium 600 + Vit D 400 Softgl] 1 tab PO DAILY 05/05 [History] Cholecalciferol (Vitamin D3) [Vitamin D3] 1,000 unit PO BID 01/24/19 [History] Cranberry 500 mg PO BID 01/24/19 [History] Cyanocobalamin (Vitamin B12) [Vitamin B12] 1,000 mcg PO DAILY 01/24/19 [History] Fenofibrate 54 mg PO BEDTIME 01/24/19 [History] atorvaSTATin [Lipitor] 20 mg PO BEDTIME 01/24/19 [History] Patient Handouts: Heart Attack, Vddw-ez-[id number] Forms: ED Department Discharge Referrals: Trevon Etienne MD [Primary Care Provider] - - Discharge Summary/Plan Comment DC Time >30 min.: No - Patient Data Vitals - Most Recent: Last Vital Signs Temp 98.2 F 01/25/19 08:00 Pulse 69 01/25/19 08:25 Resp 16 01/25/19 08:00 BP 133/58 L 01/25/19 08:25 Pulse Ox 97 01/25/19 08:00 Weight - Most Recent: 161 lb 6.4 oz Lab Results - Last 24 hrs: Laboratory Results - last 24 hr 01/24/19 01/24/19 01/24/19 Range/Units 11:55 11:55 11:55 WBC 7.5 (4.5-12.0) X10-3/uL RBC 3.66 (3.23-5.20) x10(6)uL Hgb 10.0 L (11.5-15.5) g/dL Hct 30.3 (30.0-51.3) % MCV 82.7 (80-96) fL MCH 27.3 L (27.7-33.6) pg MCHC 33.0 (32.2-35.4) g/dL RDW 12.8 (11.5-15.5) % Plt Count 189 (125-369) X10(3)uL MPV 7.4 (7.4-10.4) fL Neut % (Auto) 77.6 (46-82) % Lymph % (Auto) 11.9 L (13-37) % [place] % (Auto) 8.7 (4-12) % Eos % (Auto) 2 (1.0-5.0) % Baso % (Auto) 0 (0-2) % Neut # (Auto) 5.8 (1.6-8.3) # Lymph # (Auto) 0.9 (0.6-5.0) # [place] # (Auto) 0.7 (0.0-1.3) # Eos # (Auto) 0.1 (0.0-0.8) # Baso # (Auto) 0.0 (0.0-0.2) # Add Manual Diff Neutrophils % (Manual) (46-82) % Band Neutrophils % (0-6) % Lymphocytes % (Manual) (13-37) % Monocytes % (Manual) (4-12) % Eosinophils % (Manual) (0-5) % Sodium 141 (135-145) mmol/L Potassium 4.4 (3.5-5.3) mmol/L Chloride 106 (100-110) mmol/L Carbon Dioxide 25 (21-32) mmol/L BUN 32 H (7-18) mg/dL Creatinine 1.3 H (0.55-1.02) mg/dL Est Cr Clr Drug Dosing TNP Estimated GFR (MDRD) 39 L (>60) BUN/Creatinine Ratio 24.6 H (9-20) Glucose 102 (80-116) mg/dL Calcium 9.3 (8.6-10.2) mg/dL Magnesium 1.8 (1.8-2.5) mg/dL Total Bilirubin (0.1-1.3) mg/dL AST (5-25) IU/L ALT (12-36) U/L Alkaline Phosphatase (56-112) IU/L Troponin I < 0.017 L (<0.017-0.056) ng/mL Total Protein (6.0-8.0) g/dL Albumin (3.2-4.6) g/dL Globulin g/dL Albumin/Globulin Ratio 01/24/19 01/25/19 01/25/19 Range/Units 17:20 06:12 06:12 WBC 8.2 (4.5-12.0) X10-3/uL RBC 3.50 (3.23-5.20) x10(6)uL Hgb 9.5 L (11.5-15.5) g/dL Hct 28.8 L (30.0-51.3) % MCV 82.3 (80-96) fL MCH 27.1 L (27.7-33.6) pg MCHC 33.0 (32.2-35.4) g/dL RDW 12.7 (11.5-15.5) % Plt Count 182 (125-369) X10(3)uL MPV 7.8 (7.4-10.4) fL Neut % (Auto) (46-82) % Lymph % (Auto) (13-37) % [place] % (Auto) (4-12) % Eos % (Auto) (1.0-5.0) % Baso % (Auto) (0-2) % Neut # (Auto) (1.6-8.3) # Lymph # (Auto) (0.6-5.0) # Converse # (Auto) (0.0-1.3) # Eos # (Auto) (0.0-0.8) # Baso # (Auto) (0.0-0.2) # Add Manual Diff Yes Neutrophils % (Manual) 75 (46-82) % Band Neutrophils % 1 (0-6) % Lymphocytes % (Manual) 17 (13-37) % Monocytes % (Manual) 5 (4-12) % Eosinophils % (Manual) 2 (0-5) % Sodium 142 (135-145) mmol/L Potassium 4.5 (3.5-5.3) mmol/L Chloride 109 (100-110) mmol/L Carbon Dioxide 25 (21-32) mmol/L BUN 30 H (7-18) mg/dL Creatinine 1.2 H (0.55-1.02) mg/dL Est Cr Clr Drug Dosing 31.96 Estimated GFR (MDRD) 43 L (>60) BUN/Creatinine Ratio 25.0 H (9-20) Glucose 120 H (80-116) mg/dL Calcium 8.9 (8.6-10.2) mg/dL Magnesium (1.8-2.5) mg/dL Total Bilirubin 0.3 (0.1-1.3) mg/dL AST 32 H (5-25) IU/L ALT 33 (12-36) U/L Alkaline Phosphatase 53 L (56-112) IU/L Troponin I < 0.017 L (<0.017-0.056) ng/mL Total Protein 6.7 (6.0-8.0) g/dL Albumin 3.1 L (3.2-4.6) g/dL Globulin 3.6 g/dL Albumin/Globulin Ratio 0.9 /06/05 Range/Units 06:12 WBC (4.5-12.0) X10-3/uL RBC (3.23-5.20) x10(6)uL Hgb (11.5-15.5) g/dL Hct (30.0-51.3) % MCV (80-96) fL MCH (27.7-33.6) pg MCHC (32.2-35.4) g/dL RDW (11.5-15.5) % Plt Count (125-369) X10(3)uL MPV (7.4-10.4) fL Neut % (Auto) (46-82) % Lymph % (Auto) (13-37) % [place] % (Auto) (4-12) % Eos % (Auto) (1.0-5.0) % Baso % (Auto) (0-2) % Neut # (Auto) (1.6-8.3) # Lymph # (Auto) (0.6-5.0) # [place]verse # (Auto) (0.0-1.3) # Eos # (Auto) (0.0-0.8) # Baso # (Auto) (0.0-0.2) # Add Manual Diff Neutrophils % (Manual) (46-82) % Band Neutrophils % (0-6) % Lymphocytes % (Manual) (13-37) % Monocytes % (Manual) (4-12) % Eosinophils % (Manual) (0-5) % Sodium (135-145) mmol/L Potassium (3.5-5.3) mmol/L Chloride (100-110) mmol/L Carbon Dioxide (21-32) mmol/L BUN (7-18) mg/dL Creatinine (0.55-1.02) mg/dL Est Cr Clr Drug Dosing Estimated GFR (MDRD) (>60) BUN/Creatinine Ratio (9-20) Glucose (80-116) mg/dL Calcium (8.6-10.2) mg/dL Magnesium (1.8-2.5) mg/dL Total Bilirubin (0.1-1.3) mg/dL AST (5-25) IU/L ALT (12-36) U/L Alkaline Phosphatase (56-112) IU/L Troponin I < 0.017 L (<0.017-0.056) ng/mL Total Protein (6.0-8.0) g/dL Albumin (3.2-4.6) g/dL Globulin g/dL Albumin/Globulin Ratio Med Orders - Current: Current Medications Acetaminophen (Tylenol) 650 mg PO Q4H PRN PRN Reason: Pain Anastrozole (Arimidex) 1 mg PO BEDTIME [facility] Last Admin: 01/24/19 21:49 Dose: 1 mg Aspirin (Halfprin) 81 mg PO BEDTIME [facility] Last Admin: 01/24/19 21:45 Dose: 81 mg Atorvastatin Calcium (Lipitor) 20 mg PO BEDTIME [facility] Last Admin: 01/24/19 21:48 Dose: 20 mg Carvedilol (Coreg) 12.5 mg PO BIDMEALS [facility] Last Admin: 01/25/19 08:25 Dose: 12.5 mg Clopidogrel Bisulfate (Plavix) 75 mg PO DAILY [facility] Last Admin: 01/25/19 08:25 Dose: 75 mg Cranberry (Cranberry) 500 mg PO BID [facility] Last Admin: 01/25/19 08:23 Dose: 500 mg Cyanocobalamin (Vitamin B12) 1,000 mcg PO DAILY [facility] Last Admin: 01/25/19 08:22 Dose: 1,000 mcg Enoxaparin Sodium (Lovenox) 30 mg SUBCUT Q24H [facility] Last Admin: 01/24/19 19:46 Dose: 30 mg Ferrous Sulfate (Ferrous Sulfate) 325 mg PO DAILY [facility] Last Admin: 01/25/19 08:24 Dose: 325 mg Levothyroxine Sodium (Levothyroxine) 75 mcg PO DAILY@0600 [facility] Last Admin: 01/25/19 05:50 Dose: 75 mcg Nitroglycerin (Nitrostat) 0.4 mg SL Q5M PRN PRN Reason: Chest Pain (Ascorbic Acid [C- (1000] ) *Ptom) 0 mg PO DAILY [facility] Last Admin: 01/25/19 08:24 Dose: 1,000 mg Calcium 500 + Vit D (400 *Ptom) 1 tab PO DAILY [facility] Last Admin: 01/25/19 08:23 Dose: 1 tab Cholecalciferol ( Vitamin D3) 1,000 Unit Softgel Own Med 0 unit PO BID [facility] Last Admin: 01/25/19 08:23 Dose: 1,000 unit Fenofibrate 54 Mg (Tab Own Med) 0 mg PO BEDTIME [facility] Last Admin: 01/24/19 21:49 Dose: 54 mg Osteo Bi-Flex Tabs * (*Own Med) 2 tab PO BEDTIME [facility] Last Admin: 01/24/19 21:45 Dose: 2 tab Complete Multivitamin With Minerals Tabs Own Med 1 tab PO BEDTIME [facility] Last Admin: 01/24/19 21:50 Dose: 1 tab [Gilman-3 Fish Oil 1, (040 Mg Sfgl] *Ptom) 0 mg PO DAILY [facility] Last Admin: 01/25/19 08:22 Dose: 1,040 mg Pantoprazole Sodium (Protonix) 40 mg PO DAILY@0600 [facility] Last Admin: 01/25/19 05:50 Dose: 40 mg Senna/Docusate Sodium (Senna Plus) 1 tab PO BID PRN PRN Reason: Constipation Sodium Chloride (Saline Flush) 10 ml FLUSH ASDIRECTED PRN PRN Reason: Keep Vein Open Discontinued Medications Aspirin (Aspirin) 324 mg PO ONETIME ONE Stop: 01/24/19 12:32 Last Admin: 01/24/19 11:50 Dose: 324 mg
== END 2019-01-25 09:26 | disposition home or self-care (01) ==
LOC: FB.ED 11:36 → FB.MS 13:56 → UNDOADMIN 13:56
PROVIDERS: ADMIT Family Medicine; ATTEND Family Medicine
DX: R07.9 Chest pain, unspecified (principal); I25.10 Atherosclerotic heart disease of native coronary artery without angina pectoris; N17.9 Acute kidney failure, unspecified; S03.00XA Dislocation of jaw, unspecified side, initial encounter; E78.00 Pure hypercholesterolemia, unspecified; I10 Essential (primary) hypertension; I25.2 Old myocardial infarction; N39.0 Urinary tract infection, site not specified; M19.90 Unspecified osteoarthritis, unspecified site; E03.9 Hypothyroidism, unspecified; D64.9 Anemia, unspecified; Z79.899 Other long term (current) drug therapy; Z79.82 Long term (current) use of aspirin; Z88.1 Allergy status to other antibiotic agents; Z88.2 Allergy status to sulfonamides; Z79.02 Long term (current) use of antithrombotics/antiplatelets; Z95.5 Presence of coronary angioplasty implant and graft
CPT/HCPCS: 36415; 71046; 80048; 80053; 83735; 84484; 85025; 93005; 93971; 96372; 99218; 99238; A9270; G0378; J1650

== ENCOUNTER → 2019-06-01 | Outpatient (CLI) | payer MEDICARE, BC | LOC: FB.CLBR 08:00 | PROVIDERS: ATTEND Nurse Practitioner Family | DX: T14.8XXA Other injury of unspecified body region, initial encounter (principal) | CPT/HCPCS: 99213 ==

== ENCOUNTER 2019-09-28 16:43 | Emergency (ER) | payer MEDICARE, BC ==
[2019-09-28] MEDS ORDERED: Nitroglycerin 0.4 MG Tab.SL SL ONE (16:52)
[2019-09-28] MEDS ORDERED: Aspirin 81 MG Tab.Chew PO ONE (16:52)
[2019-09-28] MEDS ORDERED: Ketorolac 30 MG/ML SDV IVPUSH ONE (17:59)
[2019-09-28] MEDS ORDERED: hydrOXYzine HCl 50 MG/ML SDV IM ONE (18:01)
--- NOTE | 2019-09-28 18:06 | EDM.PDOC ---
ED HPI GENERAL MEDICAL PROBLEM - General Stated Complaint: CHEST PAIN Time Seen by Provider: 09/28/19 16:55 Source of Information: Reports: Patient, Family History Limitations: Reports: No Limitations - History of Present Illness INITIAL COMMENTS - FREE TEXT/NARRATIVE: Patient presented to the ED because of chest pain hic started this after noon. The pain is sharp,4/10. There is no associated nausea,dyspnea or diaphoresis. According to patient's son she is stressed out because of the season and because of the ley[place] V pandemic. - Related Data Allergies Allergy/AdvReac Type Severity Reaction Status Date / Time nitrofurantoin AdvReac Nausea and Verified 01/14/18 18:26 [From Macrobid] Vomiting Sulfa (Sulfonamide AdvReac Itching Verified 01/14/18 18:26 Antibiotics) Home Meds: Home Meds Acetaminophen 650 mg PO Q4H PRN 06/05/17 [History] Anastrozole [Arimidex] 1 mg PO BEDTIME 06/05/17 [History] Ascorbic Acid [C-1000] 2,000 mg PO DAILY 06/05/17 [History] Aspirin [Lo-Dose Aspirin EC] 81 mg PO BEDTIME 06/05/17 [History] Clopidogrel Bisulfate [Clopidogrel] 75 mg PO DAILY 06/05/17 [History] Ferrous Sulfate 325 mg PO DAILY 06/05/17 [History] Furosemide [Lasix] 20 mg PO DAILY PRN 06/05/17 [History] Glucosam/Adarsh-Msm1/C/Mina/Bosw [Osteo Bi-Flex Caplet] 2 tab PO BEDTIME 06/05/17 [History] Levothyroxine 75 mcg PO DAILY@0600 06/05/17 [History] Multivitamin with Minerals [Multiple Vitamin] 1 tab PO BEDTIME 06/05/17 [History ] Nitroglycerin 0.4 mg SL Q5M PRN 06/05/17 [History] [place]-3/DHA/Epa/Fish Oil [[place]-3 Fish Oil 1,000 MG Sfgl] 1,000 mg PO DAILY [History] Pantoprazole [ProTONIX] 40 mg PO DAILY@0600 06/05/17 [History] carvediloL [Carvedilol] 12.5 mg PO BID 06/05/17 [History] Sennosides/Docusate Sodium [Senna-Docusate Sodium] 1 tab PO BID PRN 01/14/18 [ History] Calcium Carbonate/Vitamin D3 [Calcium 600 + Vit D 400 Softgl] 1 tab PO DAILY 05/05 [History] Cholecalciferol (Vitamin D3) [Vitamin D3] 1,000 unit PO BID 01/24/19 [History] Cranberry 500 mg PO BID 01/24/19 [History] Cyanocobalamin (Vitamin B12) [Vitamin B12] 1,000 mcg PO DAILY 01/24/19 [History] Fenofibrate 54 mg PO BEDTIME 01/24/19 [History] atorvaSTATin [Lipitor] 20 mg PO BEDTIME 01/24/19 [History] hydrOXYzine pamoate [Vistaril] 25 mg PO Q8H PRN #30 cap 09/28/19 [Rx] Past Medical History - Past Health History Medical/Surgical History: Denies Medical/Surgical History HEENT History: Reports: Other (See Below) Other HEENT History: wears glasses Cardiovascular History: Reports: CAD, High Cholesterol, Hypertension, ND, Stents , Other (See Below) Other Cardiovascular History: slight damage to wall per echo Respiratory History: Reports: Pneumonia, Recurrent Gastrointestinal History: Reports: Other (See Below) Other Gastrointestinal History: some difficulty swallowing with talk of doing EGD in the future Genitourinary History: Reports: UTI, Recurrent Other Genitourinary History: "chronic bladder infection" BIOMETRICS INSTRUCTOR History: Reports: Other (See Below) Other BIOMETRICS INSTRUCTOR History: hysterectomy for hemorrhage Musculoskeletal History: Reports: Arthritis, Fibromyalgia Other Musculoskeletal History: back, knees, neck Neurological History: Reports: Other (See Below) Other Neuro History: headaches due to sinus issues Endocrine/Metabolic History: Reports: Hypothyroidism Hematologic History: Reports: Anemia Oncologic (Cancer) History: Reports: Other (See Below) Other Oncologic History: 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 Dermatologic History: Reports: Other (See Below) Other Dermatologic History: facial skin cancer - Infectious Disease History Infectious Disease History: Reports: Chicken Pox, Measles, Mumps - Past Surgical History HEENT Surgical History: Reports: Other (See Below) Other HEENT Surgeries/Procedures: precancerous spots facially Cardiovascular Surgical History: Reports: Percutaneous Transluminal Angioplasty , Other (See Below) Other Cardiovascular Surgeries/Procedures: 12/01 and 05/03 cardiac stents, Respiratory Surgical History: Reports: None GI Surgical History: Reports: Appendectomy, Colonoscopy Female Surgical History: Reports: Other (See Below) Other Female Surgeries/Procedures: right breast lumpectomy, with 4-5 nodes removed with Musculoskeletal Surgical History: Reports: None, Other (See Below) Other Musculoskeletal Surgeries/Procedures:: disc surgery Social & Family History - Family History Family Medical History: Noncontributory - Caffeine Use Caffeine Use: Reports: None - Living Situation & Occupation Living situation: Reports: Occupation: Retired ED ROS GENERAL - Review of Systems Review Of Systems: See Below Constitutional: Reports: No Symptoms HEENT: Reports: No Symptoms Respiratory: Reports: No Symptoms Cardiovascular: Reports: Chest Pain Endocrine: Reports: No Symptoms GI/Abdominal: Reports: No Symptoms Musculoskeletal: Reports: No Symptoms, Neck Pain Skin: Reports: No Symptoms Neurological: Reports: No Symptoms Psychiatric: Reports: No Symptoms ED EXAM, GENERAL - Physical Exam Exam: See Below Exam Limited By: No Limitations General Appearance: Alert, No Apparent Distress Nose: Normal Inspection, Normal Mucosa, No Blood Throat/Mouth: Normal Inspection, Normal Lips, Normal Teeth Head: Atraumatic, Normocephalic Neck: Normal Inspection, Supple, Non-Tender Respiratory/Chest: No Respiratory Distress, Lungs Clear Cardiovascular: Normal Peripheral Pulses, Regular Rate, Rhythm, No Edema, No Gallop GI/Abdominal: Normal Bowel Sounds, Soft, Non-Tender, No Organomegaly, No Distention, No Abnormal Bruit Back Exam: Normal Inspection, Full Range of Motion Extremities: Normal Inspection, Normal Range of Motion, No Pedal Edema, Normal Capillary Refill Neurological: Alert, Oriented, CN II-XII Intact, Normal Cognition, Normal Reflexes, No Motor/Sensory Deficits Psychiatric: Anxious Course - Vital Signs Text/Narrative:: Labs/EKG was reviewed with patient and her children and verbalized full understanding EKG-NSR Trop-neg Aspirin 324 mg po x1 NTG 0.4mg SL x1 toradol 15 mg IV x1 Vistaril 50 mg po x1 Last Recorded V/S: Last Vital Signs Temp 36.7 C 09/28/19 16:57 Pulse 54 L 09/28/19 18:25 Resp 18 09/28/19 18:25 BP 146/47 H 09/28/19 18:25 Pulse Ox 98 09/28/19 18:25 - Orders/Labs/Meds Labs: Laboratory Tests 09/28/19 09/28/19 09/28/19 Range/Units 17:10 17:10 17:10 WBC 4.7 (4.5-12.0) X10-3/uL RBC 3.91 (3.23-5.20) x10(6)uL Hgb 10.4 L (11.5-15.5) g/dL Hct 31.9 (30.0-51.3) % MCV 81.8 (80-96) fL MCH 26.6 L (27.7-33.6) pg MCHC 32.5 (32.2-35.4) g/dL RDW 13.0 (11.5-15.5) % Plt Count 234 (125-369) X10(3)uL MPV 7.0 L (7.4-10.4) fL Neut % (Auto) 62.6 (46-82) % Lymph % (Auto) 25.5 (13-37) % [place] % (Auto) 9.1 (4-12) % Eos % (Auto) 2 (1.0-5.0) % Baso % (Auto) 0 (0-2) % Neut # (Auto) 3.0 (1.6-8.3) # Lymph # (Auto) 1.2 (0.6-5.0) # [place] # (Auto) 0.4 (0.0-1.3) # Eos # (Auto) 0.1 (0.0-0.8) # Baso # (Auto) 0.0 (0.0-0.2) # Sodium 142 (135-145) mmol/L Potassium 4.1 (3.5-5.3) mmol/L Chloride 106 (100-110) mmol/L Carbon Dioxide 26 (21-32) mmol/L BUN 31 H (7-18) mg/dL Creatinine 1.3 H (0.55-1.02) mg/dL Est Cr Clr Drug Dosing TNP Estimated GFR (MDRD) 39 L (>60) BUN/Creatinine Ratio 23.8 H (9-20) Glucose 107 (80-116) mg/dL Calcium 8.9 (8.6-10.2) mg/dL Total Bilirubin 0.3 (0.1-1.3) mg/dL AST 20 D (5-25) IU/L ALT 21 D (12-36) U/L Alkaline Phosphatase 45 L (56-112) IU/L Troponin I 8.0 (4.0-60.3) pg/mL Total Protein 7.3 (6.0-8.0) g/dL Albumin 3.8 (3.2-4.6) g/dL Globulin 3.5 g/dL Albumin/Globulin Ratio 1.1 Meds: Medications Discontinued Medications Generic Name Dose Route Start Last Admin Trade Name Freq PRN Reason Stop Dose Admin Aspirin 324 mg 09/28/19 16:52 09/28/19 17:02 Aspirin PO 09/28/19 16:53 324 mg ONETIME ONE Administration Hydroxyzine HCl 50 mg 09/28/19 18:01 Vistaril IM 09/28/19 18:02 ONETIME ONE Hydroxyzine Pamoate 50 mg 09/28/19 18:12 09/28/19 18:15 Vistaril PO 09/28/19 18:13 50 mg NOW STA Administration Ketorolac Tromethamine 15 mg 09/28/19 17:59 09/28/19 18:15 Toradol IVPUSH 09/28/19 18:00 15 mg ONETIME ONE Administration Nitroglycerin 0.4 mg 09/28/19 16:52 09/28/19 17:39 Nitrostat SL 09/28/19 16:53 0.4 mg ONETIME ONE Administration Departure - Departure Time of Disposition: 18:00 Disposition: Home, Self-Care 01 Condition: Good Clinical Impression: Chest pain, Anxiety Prescriptions: hydrOXYzine pamoate [Vistaril] 25 mg PO Q8H PRN #30 cap PRN Reason: sleep and anxiety Instructions: Nonspecific Chest Pain, Living With Anxiety Referrals: Trevon Etienne MD [Primary Care Provider] - Forms: ED Department Discharge Additional Instructions: please read discharge instructions on atypical chest pain and anxiety vistaril/hydroxyzine 25 mg every 8 hours as needed for anxiety and sleep follow up if symptoms persist or worsens Sepsis Event Note - Focused Exam Date Exam was Performed: 09/30/19 Time Exam was Performed: 16:51
== END 2019-09-28 18:50 | disposition home or self-care (01) ==
LOC: FB.ED 16:43
DX: R07.9 Chest pain, unspecified (principal); F41.9 Anxiety disorder, unspecified; I10 Essential (primary) hypertension; I25.10 Atherosclerotic heart disease of native coronary artery without angina pectoris; I25.2 Old myocardial infarction; D64.9 Anemia, unspecified; E03.9 Hypothyroidism, unspecified; Z90.49 Acquired absence of other specified parts of digestive tract; Z90.710 Acquired absence of both cervix and uterus; Z88.1 Allergy status to other antibiotic agents; Z88.2 Allergy status to sulfonamides; Z79.82 Long term (current) use of aspirin; Z79.899 Other long term (current) drug therapy
CPT/HCPCS: 36415; 80053; 84484; 85025; 93005; 96374; 99285-25; A9270-GY; J1885

== ENCOUNTER 2020-02-07 06:54 | Day surgery (SDC) | payer MEDICARE, BC ==
[~2020-02-07 06:54] MED LIST: Lactated Ringers 1,000 ML IV SCH; Sodium Chloride 0.9% 10 ML Syringe FLUSH PRN
[2020-02-07] MEDS ORDERED: Lidocaine 2% 5 ML SDV INJECT ONE (06:55)
[2020-02-07] MEDS ORDERED: Propofol 200 MG/20 ML SDV IV ONE (06:55)
--- NOTE | 2020-02-07 09:01 | PCM.OPNOTE ---
- General Post-Op/Procedure Note Date of Surgery/Procedure: 02/07/20 Operative Procedure(s): egd with biopsy. c scope with biopsy Findings: fundic gland hyperplasia esophagitis polyp ascending sigmoid and rectum sigmoid diverticulosis grade 3 hemorrhoids. Pre Op Diagnosis: dysphagia. bleeding per rectum Post-Op Diagnosis: fundic gland hyperplasia. esophagitis. polyp ascending sigmoid and rectum. sigmoid diverticulosis. grade 3 hemorrhoids. Anesthesia Technique: MAC Primary Surgeon: Vic Nagel Anesthesia Provider: Ildefonso Suresh Pathology: stomach esophagus colon polyps and rectal polyp Complications: None Condition: Good Free Text/Narrative:: see dictation
--- NOTE | 2020-02-07 14:26 | OR ---
DATE OF OPERATION: 02/07/2020 SURGEON: Vic Nagel MD PROCEDURES PERFORMED: Esophagogastroduodenoscopy with cold forceps biopsy, colonoscopy with cold forceps biopsy and QuickClip application at bleeding site. PREOPERATIVE DIAGNOSES: History of dysphagia and bleeding per rectum. POSTOPERATIVE DIAGNOSES: Fundic gland hyperplasia of the stomach, esophagitis, polyp of the ascending and sigmoid colon, sigmoid diverticulosis, and grade 3 internal hemorrhoids. INDICATIONS FOR PROCEDURE: This is an 85-year-old white female, who is referred with some issues to include dysphagia and bleeding per rectum. She was offered and accepted a colonoscopy, as well as an upper endoscopy. DESCRIPTION OF OPERATION: After an excellent IV sedation was administered, a bite block was inserted. Flexible endoscope was passed without difficulty down the patient's esophagus into the stomach. The stomach was insufflated. Scope was passed through the pylorus to the second portion of the duodenum and slowly withdrawn. The following findings were noted: The duodenum was unremarkable. Stomach demonstrated some fundic gland hyperplasia. Electronic Maintenance Supervisor biopsies were taken. Otherwise, the exam was unremarkable. Esophagus, GE junction was approximately 40 cm. Mild erythema was noted and biopsies were taken of the distal esophagus. Remainder of the esophageal exam was unremarkable. On conclusion of the EGD, the patient did have a brief episode of laryngospasm. This was easily cleared. Our attention was then turned to her colonoscopy. Digital rectal exam was performed. She was noted to have some external, as well as what appeared to be grade 3 internal hemorrhoids. Flexible colonoscope was then inserted and advanced to the cecum without difficulty. The prep was excellent. The following findings were noted: Ascending colon, unremarkable. Transverse colon, unremarkable. Descending colon, unremarkable. Sigmoid, mild diverticulosis. In the edge of one of these diverticula, there was a small pedunculated polyp. This was gently biopsied with the cold biopsy forceps. There was some oozing noted at the base, and given the concern that the polyp may have overlayed a nutrient vessel, 2 Olympus QuickClip Pro 2.8 mm clips were placed over the site as a precaution with cessation of the oozing. The rectum demonstrated a small polyp as well, which was biopsied. The patient tolerated the procedure well, was taken to recovery room. Results will be sent by letter. /[id number] /MODL
== END 2020-02-07 10:08 | disposition home or self-care (01) ==
LOC: FB.SDS 06:54
PROVIDERS: ATTEND Surgery
DX: K63.5 Polyp of colon (principal); K62.1 Rectal polyp; K64.2 Third degree hemorrhoids; K31.7 Polyp of stomach and duodenum; K21.0 Gastro-esophageal reflux disease with esophagitis; K57.30 Diverticulosis of large intestine without perforation or abscess without bleeding; K31.89 Other diseases of stomach and duodenum; F41.9 Anxiety disorder, unspecified; F32.9 Major depressive disorder, single episode, unspecified; I12.9 Hypertensive chronic kidney disease with stage 1 through stage 4 chronic kidney disease, or unspecified chronic kidney disease; N18.3 Chronic kidney disease, stage 3 (moderate); M81.0 Age-related osteoporosis without current pathological fracture; Z98.890 Other specified postprocedural states; Z79.82 Long term (current) use of aspirin; Z79.899 Other long term (current) drug therapy; Z88.2 Allergy status to sulfonamides
CPT/HCPCS: 43239; 45380; J2001; J2704; J7120